=== PATIENT | female | born 1950 | race Caucasian/White ===

== ENCOUNTER 2017-06-28 08:40 | Day surgery (SDC) | payer MEDICARE ==
[2017-06-27 14:05] VITALS: BMI 22.8
[2017-06-28] MEDS ORDERED: Oxymetazoline HCl 0.05% ( 15 ML ) ONE ×2 (09:24→10:51)
[2017-06-28 09:38] LABS: Hemoglobin 13.6 g/dL (12.0-16.0)
[2017-06-28 10:04] LABS: Anion Gap 11 mmol/L (10-20); BUN (Urea Nitrogen) 11 mg/dL (9.8-20.1); Calc. Creatinine Clearance 107 mL/min (70-130); Calcium 9.6 mg/dL (7.8-10.44); Carbon Dioxide 26 mmol/L (23-31); Chloride 107 mmol/L (98-107); Estimated GFR-MDRD Greater than 90; Glucose 96 mg/dL (80-115); Potassium 4.4 mmol/L (3.5-5.1); Sodium 140 mmol/L (136-145)
[2017-06-28] MEDS ORDERED: Ondansetron HCl/PF 4 MG/2 ML Vial ONE (10:50)
[2017-06-28] MEDS ORDERED: Midazolam HCl 2 mg/2 ml Vial ONE (10:50)
[2017-06-28] MEDS ORDERED: Fentanyl 100 MCG/2 ML VIAL ONE (10:50)
[2017-06-28] MEDS ORDERED: Lidocaine 1% w/Epinephrine 1:200K 30 ML VIAL ONE (10:51)
[2017-06-28] MEDS ORDERED: Bacitracin Zinc Ointment 30 gm TUBE ONE (10:51)
--- NOTE | 2017-06-28 11:39 | EKG ---
Test Reason : PREOP Blood Pressure : / mmHG Vent. Rate : 063 BPM Atrial Rate : 063 BPM P-R Int : 170 ms QRS Dur : 094 ms QT Int : 440 ms P-R-T Axes : 002 -32 006 degrees QTc Int : 450 ms Normal sinus rhythm Left axis deviation Abnormal ECG When compared with ECG of 03-JUL-2007 12:05, QRS axis Shifted left Confirmed by DR. Yesenia PIERRE ([id number]) on 06/28/2017 11:39:00 AM Referred By: CRISS Confirmed By:DR. Yesenia PIERRE
[2017-06-28] MEDS ORDERED: PROPOFOL 200 MG/20 ML VIAL ONE (13:12)
[2017-06-28] MEDS ORDERED: Lidocaine 1% PF 5 ML VIAL ONE (13:12)
--- NOTE | 2017-06-28 23:08 | OP ---
PREOPERATIVE DIAGNOSES: 1. Right allergic fungal sinusitis. 2. Right nasal polyposis. 3. Right chronic rhinosinusitis. POSTOPERATIVE DIAGNOSES: 1. Right allergic fungal sinusitis. 2. Right nasal polyposis. 3. Right chronic rhinosinusitis. PROCEDURES PERFORMED: 1. Right endoscopic sinus surgery, total ethmoidectomies. 2. Right endoscopic sinus surgery, maxillary antrostomy with removal of tissue. 3. Right endoscopic sinus surgery, sphenoidotomy. 4. Right endoscopic sinus surgery, frontal sinusotomy. SURGEON: Dontae Mcmillan M.D. ESTIMATED BLOOD LOSS: 20 mL COMPLICATIONS: None. ANESTHESIA: GETA. PROCEDURE IN DETAIL: The patient taken to the operating room and placed supine on the table. Genera l endotracheal anesthesia was obtained by the Anesthesia staff. Tube was secured in the left lower l ip. The patient was placed in the beach chair position. Afrin pledgets were then placed in the nasa l cavities as the patient was prepped and draped for standard nasal procedure. Following this, the A frin pledgets were removed. A 0-degree scope was advanced into the right nasal cavity. Left nasal c avity was examined and previous changes of the endoscopic sinus surgery that showed no significant or concerning mucosal disease. On the right side, copious amounts of nasal polyps and allergic fungal was encountered in the middle meatus area. The middle turbinate was gently medialized with a Cordova e levator. Following this, the microdebrider was used to remove the remnant of the uncinate process as well as identify wide maxillary sinus on this right side. Following this, remnant cell of the ethmo idal bulla and grand lamella were identified and were removed using the microdebrider. Working from posterior to anterior, the ethmoidal cells were opened in a mucosal-sparing technique. Following thi s, staying medial to the middle turbinate, the sphenoid sinus ostia, which become stenotic, was ident ified and was repunctured using the 0-degree microdebrider. The sphenoid sinus on this right side wa s widened medially and inferiorly with the microdebrider. Following this, a 45-degree scope and the upbiting microdebrider were used to further resect and open the frontal sinus ostia cells. On this, the nasal cavity was irrigated, copious amounts of polyps were encountered throughout the ethmoidal s inuses, maxillary sinus, sphenoid sinus and frontal sinuses in right side. On this, Afrin pledgets w ere placed in the nasal cavity. The patient tolerated the procedure well.
== END 2017-06-28 13:45 | disposition home or self-care (01) ==
LOC: SDC 08:40
PROVIDERS: ATTEND Otolaryngology Plastic Surgery within the Head & Neck
PROC: 099R8ZZ Drainage of Left Maxillary Sinus, Via Natural or Artificial Opening Endoscopic (ICD-10-PCS; principal; 2017-06-28)
PROC: 099Q8ZZ Drainage of Right Maxillary Sinus, Via Natural or Artificial Opening Endoscopic (ICD-10-PCS; 2017-06-28)
PROC: 09TV8ZZ Resection of Left Ethmoid Sinus, Via Natural or Artificial Opening Endoscopic (ICD-10-PCS; 2017-06-28)
PROC: 09TU8ZZ Resection of Right Ethmoid Sinus, Via Natural or Artificial Opening Endoscopic (ICD-10-PCS; 2017-06-28)
PROC: 09BT8ZZ Excision of Left Frontal Sinus, Via Natural or Artificial Opening Endoscopic (ICD-10-PCS; 2017-06-28)
PROC: 09BS8ZZ Excision of Right Frontal Sinus, Via Natural or Artificial Opening Endoscopic (ICD-10-PCS; 2017-06-28)
PROC: 09CX8ZZ Extirpation of Matter from Left Sphenoid Sinus, Via Natural or Artificial Opening Endoscopic (ICD-10-PCS; 2017-06-28)
PROC: 09CW8ZZ Extirpation of Matter from Right Sphenoid Sinus, Via Natural or Artificial Opening Endoscopic (ICD-10-PCS; 2017-06-28)
DX: J32.9 Chronic sinusitis, unspecified (principal); J33.9 Nasal polyp, unspecified; R25.1 Tremor, unspecified; L23.0 Allergic contact dermatitis due to metals; Z79.899 Other long term (current) drug therapy; Z87.891 Personal history of nicotine dependence
CPT/HCPCS: 36415; 80048; 85014; 85018; 87070; 87077; 87102; 87186; 87205; 87206; 93005; 93010; J2001; J2250; J2405; J2704; J3010

== ENCOUNTER 2017-12-20 06:46 | Day surgery (SDC) | payer MEDICARE ==
[2017-12-18 15:30] VITALS: BMI 23.0
[2017-12-20] MEDS ORDERED: Dexamethasone 4 mg/ml Vial ONE (06:59)
[2017-12-20] MEDS ORDERED: Dexamethasone 4 mg/ml Vial SLOW IVP SCH (07:00)
[2017-12-20] MEDS ORDERED: Ampicillin/Sulbactam 3 GM in Sodium Chloride 0.9% 100 ML IVPB SCH (07:00)
[2017-12-20] MEDS ORDERED: Midazolam HCl 2 mg/2 ml Vial ONE (07:21)
[2017-12-20] MEDS ORDERED: Fentanyl 250 MCG/5 ML VIAL ONE (07:21)
[2017-12-20] MEDS ORDERED: Chlorhexidine Gluconate 15 ML UDCUP SSP ONE ×2 (08:26→08:27)
[2017-12-20] MEDS ORDERED: Bupivacaine/Epinephrine 0.25% 30 ML VIAL ONE (08:26)
[2017-12-20] MEDS ORDERED: Lidocaine 1% w/Epinephrine 1:100K 30 ML VIAL ONE (08:26)
[2017-12-20] MEDS ORDERED: Lidocaine 4% Topical Sol 50 ML BOT ONE (08:48)
[2017-12-20] MEDS ORDERED: Ketorolac Tromethamine 30 MG/ML VIAL ONE (11:24)
[2017-12-20] MEDS ORDERED: HYDROcodone/Acetaminophen 5/325 mg Tablet ONE (11:28)
[2017-12-20] MEDS ORDERED: Glycopyrrolate 0.2 MG/ML 5 ML SYRINGE ONE (13:29)
[2017-12-20] MEDS ORDERED: PROPOFOL 200 MG/20 ML VIAL ONE (13:29)
[2017-12-20] MEDS ORDERED: PHENYLEPHRINE-NS 100 MCG/ML 10 ML SYRINGE ONE (13:29)
[2017-12-20] MEDS ORDERED: Ondansetron PF 4 MG/2 ML Vial ONE (13:29)
[2017-12-20] MEDS ORDERED: Lidocaine 1% PF 5 ML VIAL ONE (13:29)
[2017-12-20] MEDS ORDERED: ePHEDrine/0.9% NaCl/PF SYRINGE 50 mg/10 ml ONE (13:29)
[2017-12-20] MEDS ORDERED: Dexamethasone 20 MG/5 ML VIAL ONE (13:29)
--- NOTE | 2017-12-21 12:28 | OP ---
DATE OF PROCEDURE: 12/20/2017 PREOPERATIVE DIAGNOSES: 1. Failing maxillary hardware. 2. Chronic maxillary sinusitis. 3. Bilateral mandibular torus. POSTOPERATIVE DIAGNOSES: 1. Failing maxillary hardware. 2. Chronic maxillary sinusitis. 3. Bilateral mandibular torus. PROCEDURES PERFORMED: 1. Removal of maxillary hardware. 2. Removal of bilateral mandibular torus. ANESTHESIA: General nasal endotracheal anesthesia. ASSEMBLING MACHINE OPERATOR: Dr. Kerns. INDICATIONS FOR PROCEDURE: This is a 67-year-old female with a chronic history of bilateral maxillar y sinusitis with multiple surgical interventions by her ENT surgeon without resolution. The patient had orthognathic surgery 30 years ago with maxillary hardware bilaterally with screws present in the maxillary sinus cavity which were believed to be seated with bacteria and a source of chronic sinusit is. Patient elects for removal of hardware to eliminate the source for infection. She also complain s of difficulty speaking due to enlargement of the bilateral mandibular torus. PROCEDURE PERFORMED: The patient was met in the preoperative holding area. Risks, benefits, and alt ernatives were discussed in detail. Questions were sought and answered. Informed consent was obtain ed. She was transferred to the operating table where a safety belt was secured. ASA monitors were a ttached and the patient was noted to have stable vital signs. IV induction by Anesthesia with nasoen dotracheal intubation without complication. Endotracheal tube was secured in a standard head wrap fa shion and a timeout was performed. The patient was prepped and draped in a sterile fashion. The kitty pharynx was thoroughly suctioned. A moistened Ray-Yamile throat pack was placed. Peridex mouth rinse a nd tooth brushing was performed, then approximately 15 mL of 0.25% Marcaine with 1:200,000 epinephrin e was administered as bilateral infiltration along the maxillary vestibule as well as bilateral infer ior alveolar nerve and lingual nerve blocks. A Bovie cautery was used for a vestibular horseshoe-sha ped incision across the maxilla. Blunt subperiosteal dissection was performed to expose the maxillar y hardware bilaterally. Two plates and ten screws were identified. Multiple screws were loose withi n the plates bilaterally. These were removed with a screwdriver and hemostat for removal of the plat es. Copious irrigation of the wounds was performed and the incision was closed with a running 4-0 Vi cryl suture bilaterally. Then, a sulcular lingual based incision from first molar to first molar in the mandibular arch was performed with blunt subperiosteal dissection to expose the bilateral mandibu lar torus. A Seldin retractor was used to protect the soft tissues of the floor of the mouth and a 7 03 bone suleiman, rongeur and rasp were used for removal of the bilateral torus and contouring of the del gual cortex. Copious irrigation of the wounds was performed bilaterally and interrupted 4-0 chromic sutures were used interdentally for closure of the bilateral lingual flaps. The oropharynx was irrig ated and thoroughly suctioned. The moistened Ray-Yamile throat pack was removed. This concluded the pr ocedure. The patient was extubated in the room and returned to the PACU in stable condition. FLUIDS: See anesthesia records. BLOOD LOSS: 150 mL. DRAINS: None. SPECIMENS: None. COUNTS: Needle and sponge count verified as correct. COMPLICATIONS: None.
== END 2017-12-20 13:50 | disposition home or self-care (01) ==
LOC: SDC 06:46
PROVIDERS: ATTEND Dentist Oral and Maxillofacial Surgery
PROC: 0NPW04Z Removal of Internal Fixation Device from Facial Bone, Open Approach (ICD-10-PCS; principal; 2017-12-20)
PROC: 0NBV0ZZ Excision of Left Mandible, Open Approach (ICD-10-PCS; 2017-12-20)
PROC: 0NBT0ZZ Excision of Right Mandible, Open Approach (ICD-10-PCS; 2017-12-20)
DX: M27.0 Developmental disorders of jaws (principal); T84.218A Breakdown (mechanical) of internal fixation device of other bones, initial encounter; J32.0 Chronic maxillary sinusitis; J45.909 Unspecified asthma, uncomplicated; G25.81 Restless legs syndrome; M81.0 Age-related osteoporosis without current pathological fracture; Z79.899 Other long term (current) drug therapy; Z88.8 Allergy status to other drugs, medicaments and biological substances
CPT/HCPCS: 96374; J0131; J0295; J1100; J1885; J2001; J2250; J2405; J2704; J3010; J7050

== ENCOUNTER 2018-09-18 09:47 | Emergency (ER) | payer MEDICARE ==
[2018-09-18] MEDS ORDERED: diphenhydrAMINE 12.5 MG/5 ML UDCUP ONE (10:30)
[2018-09-18] MEDS ORDERED: diphenhydrAMINE 50 MG/ML VIAL ONE (10:32)
[2018-09-18 11:12] LABS: Band 18 % (5-11); Hemoglobin 13.9 g/dL (12.0-16.0); Lymphocytes 19 % (21-51); MDiff Complete? YES; Mean Corpuscular HGB CONC 32.7 g/dL (32.0-36.0); Mean Corpuscular Hemoglobin 29.8 pg (27.0-31.0); Mean Corpuscular Volume 91.3 fL (78.0-98.0); Mean Platelet Volume 7.7 fL (7.4-10.4); Monocytes 5 % (0-10); Neutrophil 57 % (42-75); Platelet Count 220 thou/uL (130-400); RBC Distribution Width 11.8 % (11.5-14.5); RBC Morphology Normal; Reactive Lymphocytes 1 % (0-10); Red Blood Cell (RBC) Count 4.66 mill/uL (4.20-5.40); White Blood Cell (WBC) Count 8.8 thou/uL (4.8-10.8)
[2018-09-18 11:15] LABS: ALT (SGPT) 20 U/L (8-55); AST (SGOT) 19 U/L (5-34); Albumin 4.1 g/dL (3.4-4.8); Alkaline Phosphatase 101 U/L (40-150); Anion Gap 14 mmol/L (10-20); BUN (Urea Nitrogen) 9 mg/dL (9.8-20.1); Bilirubin, Total 0.7 mg/dL (0.2-1.2); CK (CPK) 53 U/L (29-168); Calc. Creatinine Clearance 0 mL/min (70-130); Calcium 9.5 mg/dL (7.8-10.44); Carbon Dioxide 24 mmol/L (23-31); Chloride 106 mmol/L (98-107); Estimated GFR-MDRD Greater than 90; Globulin 2.7 g/dL (2.4-3.5); Glucose 100 mg/dL (80-115); Lipase 10 U/L (8-78); Potassium 3.7 mmol/L (3.5-5.1); Protein, Total 6.8 g/dL (6.0-8.3); Sodium 140 mmol/L (136-145)
[2018-09-18 11:31] LABS: Bilirubin Negative (Negative); Blood, Urine Negative (Negative); Clarity Clear (Clear); Glucose, Urine (Dipstick) Normal (Negative); Leukocyte Negative Leu/uL (Negative); Nitrite Negative (Negative); Protein, Urine (Dipstick) Negative (Neg-Trace); Urobilinogen Normal mg/dL (Less than 2)
--- NOTE | 2018-09-18 11:43 | CT ---
CT Abdomen Pelvis W Con History: Abdominal pain. Diarrhea. Comparison: Small right layering pleural effusion. Mild atelectasis lung bases. No pericardial effusi on. Severe circumferential Findings: The containing of the distal esophagus. High-grade intrahepatic and extrahepatic biliary dilatation. Prior cholecystectomy. The common bile d uct measures 13 mm to the level of the ampulla for which there is a high-grade narrowing of the distal 7 mm. Aortic contour is nonaneurysmal. Evidence of recent left hip surgery. No dilated loops of large or small bowel. No free intraperitoneal gas or fluid. Aortoiliac contour is nonaneurysmal. No retroperitoneal periodic adenopathy. Nonobstructive 2 x 2 mm calculus superior pole right kidney. Obstructing 2 x 2 mm calculus inferior p ole left kidney. Mild osseous demineralization. Impression: 1. High-grade circumferential wall thickening of the distal esophagus may reflect esophagitis versus malignancy. Upper endoscopy recommended. 2. Small right layering pleural effusion. 3. Nonobstructive bilateral renal calculi. 4. Severe intrahepatic and extrahepatic biliary dilatation to the level of the pancreatic head with h igh-grade narrowing of the 7 mm common bile duct near the ampulla. Normal caliber pancreatic duct. Recommend correlation with LFTs. ERCP recommended.
[2018-09-18] MEDS ORDERED: ISOVUE-370 76%-LOCM 1 ML ONE (13:34)
== END 2018-09-18 12:18 | disposition home or self-care (01) ==
LOC: ERS 09:47
DX: E86.0 Dehydration (principal); K83.8 Other specified diseases of biliary tract; K22.8 Other specified diseases of esophagus; Z79.899 Other long term (current) drug therapy
CPT/HCPCS: 36415; 74177; 80053; 81003; 82550; 83690; 85025; 96361; 96374; J1200; Q0163; Q9966

== ENCOUNTER 2018-09-26 10:03 | Inpatient (IN) | payer MEDICARE ==
[2018-09-26] MEDS ORDERED: ISOVUE-370 76%-LOCM 1 ML ONE (10:15)
[2018-09-26] MEDS ORDERED: Acetaminophen 500 MG TAB ONE (10:30)
[2018-09-26] MEDS ORDERED: Ondansetron PF 4 MG/2 ML Vial ONE (10:30)
[2018-09-26] MEDS ORDERED: Piperacillin/Tazobactam 4.5 GM VIAL ONE (10:36)
[2018-09-26 10:57] LABS: Mean Corpuscular HGB CONC 33.8 g/dL (32.0-36.0); Mean Corpuscular Hemoglobin 30.4 pg (27.0-31.0); Mean Corpuscular Volume 89.9 fL (78.0-98.0); Mean Platelet Volume 7.7 fL (7.4-10.4); Platelet Count 287 thou/uL (130-400); RBC Distribution Width 12.5 % (11.5-14.5); Red Blood Cell (RBC) Count 4.29 mill/uL (4.20-5.40); White Blood Cell (WBC) Count 30.6 thou/uL (4.8-10.8)
--- NOTE | 2018-09-26 11:11 | CT ---
CT LEFT LOWER EXTREMITY WITH CONTRAST: Date: 09/26/18 HISTORY: Postoperative pain. COMPARISON: CT abdomen/pelvis dated 09/18/18. FINDINGS: There is mild hyperenhancement of the sigmoid colon which can be seen with colitis. Also, low grade s ubmucosal edema. Bones: Enostosis of the left acetabulum. Evidence of recent gluteus medius surgery. No acute fracture or mal alignment. Small acetabular osteophyte formation. The obturator rings are intact. No erosions or frannie ostitis. Soft Tissues: No abnormal soft tissue mass is appreciated. No fluid collection. No abscess. Muscles: Muscle bulk is normal. No definite muscle tear. Neurovascular Structures: Intact. IMPRESSION: 1. Mild hyperenhancement of the sigmoid colon with submucosal edema can be seen with colitis. 2. Expected postoperative findings without complication. POS: [facility]
[2018-09-26 11:19] LABS: ALT (SGPT) 22 U/L (8-55); AST (SGOT) 24 U/L (5-34); Albumin 3.6 g/dL (3.4-4.8); Alkaline Phosphatase 73 U/L (40-150); Anion Gap 16 mmol/L (10-20); BUN (Urea Nitrogen) 5 mg/dL (9.8-20.1); Calc. Creatinine Clearance 0 mL/min (70-130); Calcium 8.5 mg/dL (7.8-10.44); Carbon Dioxide 20 mmol/L (23-31); Chloride 107 mmol/L (98-107); Estimated GFR-MDRD Greater than 90; Globulin 2.4 g/dL (2.4-3.5); Glucose 101 mg/dL (80-115); Lipase 9 U/L (8-78); Potassium 3.6 mmol/L (3.5-5.1); Sodium 139 mmol/L (136-145)
[2018-09-26 11:19] LABS: Bilirubin Negative (Negative); Blood, Urine Negative (Negative); Clarity Clear (Clear); Glucose, Urine (Dipstick) Normal (Negative); Leukocyte Negative Leu/uL (Negative); Nitrite Negative (Negative); Protein, Urine (Dipstick) Negative (Neg-Trace); Urobilinogen Normal mg/dL (Less than 2)
[2018-09-26 11:21] LABS: Band 28 % (5-11); Lymphocytes 7 % (21-51); MDiff Complete? YES; Monocytes 3 % (0-10); Neutrophil 60 % (42-75); Platelet Morphology Comment Appears Adequate; Reactive Lymphocytes 2 % (0-10); Vacuoles SLIGHT
[2018-09-26] MEDS ORDERED: Vancomycin HCl 25 MG/ML Oral PO SCH ×2 (12:45→18:00)
[2018-09-26] MEDS ORDERED: Acetaminophen 325 MG TAB ONE (15:13)
[2018-09-26] MEDS ORDERED: Acetaminophen 650 MG Suppository PR PRN (16:30)
[2018-09-26] MEDS ORDERED: Saccharomyces boulardii 250 MG CAP PO SCH (17:15)
--- NOTE | 2018-09-26 17:33 | HP ---
PRIMARY CARE PROVIDER: Earline Noel MD CHIEF COMPLAINT: Diarrhea. HISTORY OF PRESENT ILLNESS: Ms. Stephenson is a pleasant 68-year-old lady who was seen at [facility] on September 26, 2018. She reports that on July 10, she had left hip surgery. On August 07, a pocket of fluid was found at the site of surgery. She reports on and off left hip pain, but is unable to characterize it further. She reports that over the last 3 weeks she has been having diarrhea. She reports 10 to 15 bowel movements a day. She reports mucousy, nonbloody diarrhea. She was seen in the emergency room at [facility] on September 18, 2018, and had a CT scan of the abdomen and pelvis done at that time. This showed high-grade circumferential wall thickening of the distal esophagus, which may reflect esophagitis versus malignancy, small right layering pleural effusion, and nonobstructive bilateral renal calculi. She also had severe intrahepatic and extrahepatic biliary dilatation to the level of the pancreatic head with high-grade narrowing of the 7 mm common bile duct near the ampulla. She had normal caliber pancreatic duct. She also reports that she had a PET scan, which showed a mass on gallbladder. She reports having fevers, with T-max of 102 degrees Fahrenheit. She reports generalized weakness. She denies nausea or vomiting. She reports abdominal pain, but is unable to characterize it further. REVIEW OF SYSTEMS: All other systems were reviewed and found to be negative. PAST MEDICAL HISTORY: Essential tremor. PAST SURGICAL HISTORY: Hysterectomy, unilateral salpingo-oophorectomy, gallbladder surgery, jaw wiring, tonsillectomy, section, cataract, tendon graft, sinus surgery x3, and left hip surgery. FAMILY HISTORY: Heart disease in her father. SOCIAL HISTORY: The patient denies tobacco use, alcohol use, or recreational drug use. ALLERGIES: NO KNOWN DRUG ALLERGIES. CURRENT MEDICATIONS: 1. Propranolol 20 mg daily. 2. Gabapentin 300 mg daily. 3. Ciprofloxacin 500 mg 2 times a day. 4. Flagyl 500 mg 3 times a day. 5. Imodium 2 mg as needed. 6. Zofran 4 mg as needed. PHYSICAL EXAMINATION: GENERAL: Ms. Stephenson is awake and alert, not in acute distress. VITAL SIGNS: Blood pressure is 103/56, pulse 89, respiratory rate 16, and oxygen saturation 95% on room air. She is afebrile. Earlier, she was hypotensive with a blood pressure of 92/51. When she presented to the emergency room, she had pulse of 101 and respiratory rate of 20. EYES: No scleral icterus. No conjunctival pallor. ENT: Dry mucosal membranes. No oropharyngeal erythema or exudates. NECK: Supple, nontender, trachea is midline. RESPIRATORY: Accessory muscles of breathing are not active. Chest wall movements are symmetric bilaterally. Lungs are clear to auscultation without wheeze, rhonchi, or crepitations. CARDIOVASCULAR: S1 and S2 are heard, regular. Peripheral pulses palpable. ABDOMEN: Bowel sounds are normal. Abdomen is mildly tender diffusely. No guarding or rigidity. NEUROLOGIC: Cranial nerves 2 through 12 are intact. MUSCULOSKELETAL: Power is 5/5 in all 4 extremities. SKIN: No rashes or subcutaneous nodules. LYMPHATIC: No cervical lymphadenopathy. PSYCHIATRIC: The patient is anxious, tearful at times, oriented to person, place, and time. LABORATORY DATA: Ms. Stephenson' labs and investigations were reviewed. I reviewed her electrocardiogram, which shows normal sinus rhythm, no ST changes to suggest an acute coronary syndrome. I also reviewed her lower extremity CT scan done with contrast, which showed colitis in the abdominal view. She has leukocytosis with 30,600 white cells, of which 60% are neutrophils and 20% are bands. Hemoglobin and platelet count are normal. She has normal sodium, normal potassium, decreased creatinine of 0.56, normal LFTs, normal troponin-I, normal lactic acid, and elevated C-reactive protein of 3.5. Urinalysis is positive for ketones, negative for nitrite and leukocyte esterase. ASSESSMENT AND PLAN: Ms. Stephenson is a pleasant 68-year-old lady who was seen at [facility] on September 26, 2018. Her problem list includes: 1. Sepsis: Ms. Stephenson is presenting with sepsis, secondary to Clostridium difficile infection. She will be admitted to the hospital for further management. She has received intravenous fluid resuscitation with improvement in her blood pressure. 2. Clostridium difficile colitis: She will be started on vancomycin orally and metronidazole intravenously. We will also start her on Florastor. 3. Difficulty swallowing: Ms. Stephenson is presenting with difficulty swallowing, most likely secondary to the probable esophagitis seen on CT scan. We will consult GI Service for opinion and help with management. 4. Essential tremor: We will resume propranolol once her blood pressure stabilizes. Many thanks for allowing me to participate in your patient's care. Please feel free to contact me with any questions or concerns. LEVEL OF RISK: High. LEVEL OF COMPLEXITY: High. Job ID: [id number]
[2018-09-26 19:36] VITALS: BMI 20.2
[2018-09-26] MEDS: Sodium Chloride 0.9% 1,000 ML IV SCH (19:47)
[2018-09-26] MEDS: metroNIDAZOLE 500 MG in Premix Bag 1 BAG IVPB SCH (19:47)
[2018-09-26] MEDS: Acetaminophen 325 MG TAB PO PRN (20:32)
[2018-09-26] MEDS: Morphine 2 MG/ML SYRINGE SLOW IVP PRN (21:29)
--- NOTE | 2018-09-27 01:26 | CON ---
DATE OF CONSULTATION: 09/26/2018 REASON FOR CONSULTATION: Severe diarrhea, C difficile toxin positive. HISTORY OF PRESENT ILLNESS: Clemencia Stephenson is a very pleasant 68-year-old female who has been having diarrhea and some abdominal cramping over the last probably for 2 to 3 weeks. She was seen here a couple of weeks ago and had an abdominal CAT scan and was told to have colitis. She was sent home on Flagyl and Cipro. Her symptoms did not improve and continues to have worsening symptoms. She has been go to the bathroom 15 to 20 times a day. Stools are watery and very foul smelling. She has had no blood in the stool. She tells me she had C difficile colitis more than 30 years ago. Apparently, this caused patient to take antibiotic intake. The patient has had some low-grade fever for few days and now has gone up to temperature 102 degrees Fahrenheit. She has mild nausea with no vomiting. The patient apparently has some hip surgery x2 at the [facility]. First surgery was done in June of 2018 and she had repeat surgery in July 2018 because of some cyst over the operative scar area. She was hospitalized overnight at the and was given some antibiotics. The patient developed diarrhea approximately 3 weeks ago. The diarrhea was too mild to begin with, but has been getting worse and worse. When she came to the ER a couple of weeks ago, she had a CAT of abdomen. The CAT scan did show some thickening of the esophageal lumen and the esophageal stricture, also she had dilation of the intrahepatic and extrahepatic bile duct. The patient gives a history of dysphagia over the last 2 years off and on. The dysphagia occurs mostly with solid foods like meat and bread. She has not see a doctor, although she has dysphagia for 2 years. At times, she has had some food stuck in the esophagus. She has no odynophagia. She has no relevant history. MEDICAL ILLNESSES: Essential tremor, childhood asthma, hypertension, peripheral neuropathy, diarrhea over the last 3 weeks. PAST SURGICAL HISTORY: 1. Hip surgery x2, in June and July of 2018. 2. Hysterectomy. 3. Unilateral salpingo-oophorectomy. 4. Cholecystectomy more than 30 years ago. 5. Jaw wiring. 6. Tonsillectomy. 7. . 8. Cataract. FAMILY HISTORY: The father of heart disease. Mother of heart disease. No family history of cancer. No diabetes, CVA, or kidney disease. SOCIAL HISTORY: The patient does not smoke or drink alcohol. ALLERGIES: NO ALLERGIES. REVIEW OF SYSTEMS: Remarkable for basically of abdominal soreness, nausea, and diarrhea. PHYSICAL EXAMINATION: GENERAL: Appears in no distress, but she appears to be moaning and groaning. She states she feels sore over the abdomen. She is also shaking. VITAL SIGNS: Pulse is 90, blood pressure 110/70. Afebrile. HEENT: Conjunctivae clear. NECK: Supple. No adenitis or thyromegaly noted. CARDIOVASCULAR SYSTEM: First and second heart sounds were heard. LUNGS: Clear to auscultation. ABDOMEN: Mildly distended and firm. Abdomen is tender diffusively. There is no rebound or guarding. Bowel sounds are active. EXTREMITIES: Reveal no edema. CENTRAL NERVOUS SYSTEM: Grossly within normal limits. LABORATORY DATA: Admitting labs show WBC of 30,600, hemoglobin 13, hematocrit 38.5, MCV 89.9, platelet count is 287,000, polymorphs 60, bands 28, lymphocytes 7. Chemistry panel shows normal lytes, BUN is 5, creatinine 0.56, glucose 101. Lactic acid 1.4. LFTs are normal. Albumin 3.6. Abdominal CAT scan done couple of weeks which revealed dilation of the biliary tree, most likely from previous cholecystectomy and also possible esophageal stricture. CLINIC IMPRESSION: 1. Severe C difficile colitis, mostly from the antibiotic intake. 2. Esophageal stricture on CAT scan. 3. Dilation of the bile duct on CAT scan. Her liver function tests are normal. The dilation is very well may be because of previous gallbladder surgery more than 30 years ago. Could also have mild hepatic artery stenosis. RECOMMENDATIONS: 1. May have ice chips. 2. IV fluids. 3. Follow up labs. 4. Vancomycin and Flagyl as ordered by Dr. Ramiro Hoyos. 5. Once her clinical condition improves, I believe she will probably need EGD and dilation. Job ID: [id number]
[2018-09-27] MEDS: metroNIDAZOLE 500 MG in Premix Bag 1 BAG IVPB SCH ×3 (01:34→18:06)
[2018-09-27] MEDS: Sodium Chloride 0.9% 1,000 ML IV SCH ×3 (01:34→20:30)
[2018-09-27] MEDS: Morphine 2 MG/ML SYRINGE SLOW IVP PRN (02:12)
[2018-09-27] MEDS: Acetaminophen 325 MG TAB PO PRN (05:25)
[2018-09-27 05:33] LABS: Anion Gap 10 mmol/L (10-20); BUN (Urea Nitrogen) 7 mg/dL (9.8-20.1); Calc. Creatinine Clearance 128 mL/min (70-130); Calcium 7.8 mg/dL (7.8-10.44); Carbon Dioxide 19 mmol/L (23-31); Chloride 112 mmol/L (98-107); Estimated GFR-MDRD Greater than 90; Glucose 87 mg/dL (80-115); Potassium 3.1 mmol/L (3.5-5.1); Sodium 138 mmol/L (136-145)
[2018-09-27 06:48] LABS: #Eosinphils 0.1 thou/uL (0.0-0.7); #Lymphocytes 1.2 thou/uL (1.20-3.40); #Monocytes 1.1 thou/uL (0.11-0.59); #Neutrophils 16.7 thou/uL (1.40-6.50); %Basophils 0.2 % (0.0-1.0); %Eosinophils 0.4 % (0.0-10.0); %Lymphocytes 6.4 % (21.0-51.0); %Monocytes 5.8 % (0.0-10.0); %Neutrophils 87.2 % (42.0-75.0); Hemoglobin 10.9 g/dL (12.0-16.0); Mean Corpuscular HGB CONC 33.5 g/dL (32.0-36.0); Mean Corpuscular Hemoglobin 30.8 pg (27.0-31.0); Mean Platelet Volume 7.1 fL (7.4-10.4); Platelet Count 225 thou/uL (130-400); RBC Distribution Width 12.5 % (11.5-14.5); Red Blood Cell (RBC) Count 3.55 mill/uL (4.20-5.40); White Blood Cell (WBC) Count 19.2 thou/uL (4.8-10.8)
--- NOTE | 2018-09-27 07:53 | ULT ---
Sonogram right upper quadrant HISTORY: Biliary obstruction. Right upper quadrant pain. FINDINGS: Gallbladder is surgically absent. Common duct is 1.3 cm diameter distally. Intrahepatic roma e ducts less distended than on recent CT exam. No focal liver abnormalities. No free fluid. IMPRESSION: Common bile duct is more dilated than on the recent CT from 09/18/2018. Intrahepatic bilia ry distention is less pronounced. Consider central biliary obstruction. Radionucleotide hepatobiliary scan could be used to evaluate for biliary patency. Status post cholecystectomy.
[2018-09-27] MEDS: Vancomycin HCl 25 MG/ML Oral PO SCH ×4 (09:54→20:29)
[2018-09-27] MEDS: Saccharomyces boulardii 250 MG CAP PO SCH (09:55)
[2018-09-27] MEDS: Enoxaparin Sodium 40 MG/0.4 ML SYRINGE SC SCH (09:55)
--- NOTE | 2018-09-27 12:04 | CON ---
DATE OF CONSULTATION: 09/27/2018 HISTORY OF PRESENT ILLNESS: Clemencia Stephenson is a 68-year-old, who was in ER hold all day yesterday. She presented with intractable diarrhea. She received several liters of saline in the emergency room, had stabilization of vital signs. GI has been consulted. PAST MEDICAL HISTORY: Remarkable for a, 1. CAT scanning in August of this year showing thickening of the distal esophagus. 2. History of nephrolithiasis. 3. History of positive PET scan involving her gallbladder according to the admission H and P. 4. Status post hysterectomy. 5. History of unilateral salpingo-oophorectomy. 6. History of jaw wiring in the past. 7. History of tonsillectomy. 8. History of . 9. History of sinus surgery, multiple occasions. 10. History of hip surgery. 11. Status post removal of failing maxillary hardware and removal of bilateral mandibular torus. 12. Apparently, she was felt to have screws penetrating her sinuses, which were leading to chronic infections of the hardware, was removed at the end of 2018. FAMILY HISTORY: Negative for lung disease in early age. SOCIAL HISTORY: She is a nonsmoker and nondrinker. REVIEW OF SYSTEMS: A 10-point review of systems completed, is remarkable only for the diarrhea and she has had some mild abdominal discomfort that improved overnight. PHYSICAL EXAMINATION: GENERAL: She is in no distress. VITAL SIGNS: Afebrile. Blood pressure 115/55, heart rate 86, respiratory rate 15. HEAD AND NECK: Unremarkable. She appears older than her age. LUNGS: Clear. HEART: Regular rhythm. S1 and S2 are normal. No gallop. No murmur. ABDOMEN: Soft, minimally tender, slightly distended. EXTREMITIES: Without clubbing, cyanosis, or edema. NEURO: Nonfocal. LABORATORY DATA: White count 19.2, hemoglobin 10.9, platelets 225. Sodium 138, potassium 3.1, chloride 112, bicarb 19, BUN 7, and creatinine 0.52. Liver enzymes were normal. IMAGING STUDIES: Abdominal ultrasound shows bile duct dilation. She has had a cholecystectomy. Gastroenterology has been consulted. IMPRESSION: 1. Intractable diarrhea with intravascular volume depletion, improving. 2. Hypotension on admission with negative blood cultures, but distal colon inflammation and Clostridium difficile toxin positive and antigen positive. 3. Hyperchloremic acidosis secondary to volume resuscitation. 4. Anemia with a 2 g drop in hemoglobin, likely secondary to volume repletion. 5. Ketonuria, most likely secondary to poor nutritional intake on presentation. 6. Common bile duct dilation. 7. Nonobstructive nephrolithiasis. 8. Status post removal of maxillary hardware for chronic sinus infections, felt to be due to a screw penetrating on maxillary sinus. 9. A distal esophageal thickening of unclear etiology. Gastrointestinal is following. Hemodynamically, she has improved. She needs an EGD at some point in my opinion. She is stable enough to transfer out of the intermediate care unit in my opinion. This is a 50 minute consult with greater than 50% of time spent on unit coordinating care. Job ID: [id number]
--- NOTE | 2018-09-27 17:37 | PDOC.HOSPP ---
- Subjective Subjective: still has watery diarrhea, around 4 times from am till noon no nausea feels wiped out - Objective Vital Signs & Weight: Vital Signs (12 hours) Temp Pulse Ox 09/27/18 15:16 98.5 F 09/27/18 11:42 98.3 F 09/27/18 08:00 99.1 F 99 Weight Admit Weight 170 lb 8 oz Weight 170 lb 8 oz Most Recent Monitor Data Heart Rate from ECG 84 NIBP 128/65 NIBP BP-Mean 86 Respiration from ECG 13 SpO2 99 I&O: 09/26/18 09/27/18 09/28/18 06:59 06:59 06:59 Intake Total 1440 Output Total 900 Balance 540 Result Diagrams: 09/27/18 06:36 09/27/18 04:47 ROS - Review of Systems All systems: All other ROS were reviewed and found negative. - Medication Medications: Active Medications Generic Name Dose Route Start Last Admin Trade Name Freq PRN Reason Stop Dose Admin Acetaminophen 650 mg 09/26/18 16:30 09/27/18 05:25 Tylenol PO 650 mg Q4H PRN Administration Headache/Fever/Mild Pain (1-3) Enoxaparin Sodium 40 mg 09/27/18 09:00 09/27/18 09:55 Lovenox SC 40 mg 0900 KEVIN Administration Metronidazole 500 mg/ Device 100 mls @ 100 mls/hr 09/26/18 18:00 09/27/18 09: 55 IVPB 100 mls 0200,1000,1800 KEVIN Administration Sodium Chloride 1,000 mls @ 100 mls/hr 09/26/18 16:30 09/27/18 14:28 Normal Saline 0.9% IV 1,000 mls .Q10H KEVIN Administration Morphine Sulfate 2 mg 09/26/18 21:06 09/27/18 02:12 Morphine SLOW IVP 2 mg Q4H PRN Administration Severe Pain (7-10) Pneumococcal 13-Valent Conj Vacc 0.5 ml 09/27/18 21:00 09/27/18 02:50 Prevnar IM 09/27/18 21:01 Not Given .ONCE ONE Saccharomyces Boulardii 250 mg 09/27/18 09:00 09/27/18 09:55 Florastor PO 250 mg DAILY KEVIN Administration Vancomycin HCl 250 mg 09/27/18 09:00 09/27/18 14:26 First Vancomycin PO 250 mg QID KEVIN Administration - Exam awake alert, ill appearing Eye: PERRL, anicteric sclera ENT: no oropharyngeal lesions, dry oral mucosa Neck: supple, no JVD Heart: RRR, no gallops Respiratory: no wheezes, no rales Gastrointestinal: soft, non-distended, normal bowel sounds Extremities: no clubbing, no edema Neurological: CN's grossly intact, no focal deficits Musculoskeletal: normal tone, normal strength Psychiatric: normal affect, A&O x 3 Hosp A/P (1) Sepsis Code(s): A41.9 - SEPSIS, UNSPECIFIED ORGANISM Status: Suspected (2) C. difficile colitis Code(s): A04.72 - ENTEROCOLITIS D/T CLOSTRIDIUM DIFFICILE, NOT SPCF RECUR Status: Acute (3) Severe dehydration Code(s): E86.0 - DEHYDRATION Status: Acute (4) Metabolic acidosis Code(s): E87.2 - ACIDOSIS Status: Acute (5) Chronic anemia Code(s): D64.9 - ANEMIA, UNSPECIFIED Status: Chronic - Plan was on multiple rounds of antibiotics for her hip and oral surgery is on vanc, iv hydration june tx to medical floor ruq shows cbd of 1.3cm, prior cholecystectomy home dose propranolol, neurontin to mobilize as tolerated bandemia is slowly coming down with wbc levels
--- NOTE | 2018-09-27 19:38 | PRG ---
DATE OF SERVICE: 09/27/2018 SUBJECTIVE: This is a 68-year-old female with chronic diarrhea diagnosed with C difficile colitis. She is having approximately 15 plus bowel movements every day. She was started on vancomycin and Flagyl. She had bandemia of 20% yesterday, but today her CBC shows normal bandemia. She appears slightly much better. She shows some abdominal soreness diffusely and nausea and vomiting. She has had 3 stools today. Stools are watery. There is no blood in the stool. OBJECTIVE: GENERAL: Appears comfortable. VITAL SIGNS: Afebrile, temperature 98.5 degrees Fahrenheit, pulse is 87, blood pressure is 128/60. CARDIOVASCULAR: First and second heart sounds are normal. LUNGS: Clear to auscultation. ABDOMEN: Soft today compared to yesterday. It is not firm like yesterday. She is largely softer, but she is mildly tender all over. There is no rebound or guarding. LABORATORY DATA: WBC dropping down at 19,200, hemoglobin 10.9, hematocrit 30.7, platelet count 225,000, polymorphs 87, no bandemia, lymphocytes 6, monocytes 5. Chem-7 shows mild hypokalemia, potassium 3.1, CO2 is 19, BUN is 7, calcium 7.8. IMPRESSION: 1. Severe Clostridium difficile colitis, diarrhea. 2. Dysphagia with abnormal CAT scan showing thickening of the distal esophagus and with dilation of bile duct mostly from previous cholecystectomy. RECOMMENDATION: Clear liquid diet today and hopefully, the diet can be advanced to full liquid or soft diet tomorrow. Depending on her bowel frequency, we will make further recommendations. At some point in time from an EGD and I will defer EGD for the next few days unless colitis gets better. Job ID: [id number]
[2018-09-27] MEDS: Gabapentin 300 MG CAP PO SCH (20:28)
[2018-09-27] MEDS: Propranolol 40 MG TAB PO SCH (20:29)
[2018-09-27] MEDS ORDERED: Prevnar 13-Val Conj/PF 0.5 ML SYRINGE IM ONE (21:00)
[2018-09-28] MEDS ORDERED: Melatonin 3 MG TAB PO SCH (01:15)
[2018-09-28] MEDS: metroNIDAZOLE 500 MG in Premix Bag 1 BAG IVPB SCH ×3 (01:22→20:50)
[2018-09-28] MEDS: Morphine 2 MG/ML SYRINGE SLOW IVP PRN (04:25)
[2018-09-28 06:17] LABS: #Eosinphils 0.2 thou/uL (0.0-0.7); #Lymphocytes 1.7 thou/uL (1.20-3.40); #Monocytes 0.7 thou/uL (0.11-0.59); %Basophils 0.2 % (0.0-1.0); %Eosinophils 2.3 % (0.0-10.0); %Lymphocytes 17.4 % (21.0-51.0); %Monocytes 7.1 % (0.0-10.0); %Neutrophils 72.9 % (42.0-75.0); Hemoglobin 10.2 g/dL (12.0-16.0); Mean Corpuscular HGB CONC 32.5 g/dL (32.0-36.0); Mean Corpuscular Volume 92.2 fL (78.0-98.0); Mean Platelet Volume 7.4 fL (7.4-10.4); Platelet Count 235 thou/uL (130-400); RBC Distribution Width 12.6 % (11.5-14.5); White Blood Cell (WBC) Count 9.6 thou/uL (4.8-10.8)
[2018-09-28 06:37] LABS: Anion Gap 10 mmol/L (10-20); BUN (Urea Nitrogen) 5 mg/dL (9.8-20.1); Calc. Creatinine Clearance 131 mL/min (70-130); Carbon Dioxide 21 mmol/L (23-31); Chloride 113 mmol/L (98-107); Estimated GFR-MDRD Greater than 90; Glucose 95 mg/dL (80-115); Sodium 141 mmol/L (136-145)
[2018-09-28 06:45] LABS: Potassium 2.8 mmol/L (3.5-5.1)
[2018-09-28] MEDS: Multivit, Therapeutic 1 TAB PO SCH (09:34)
[2018-09-28] MEDS: Potassium Chloride 20 MEQ TAB PO SCH ×3 (09:34→20:55)
[2018-09-28] MEDS: Saccharomyces boulardii 250 MG CAP PO SCH (09:35)
[2018-09-28] MEDS: Enoxaparin Sodium 40 MG/0.4 ML SYRINGE SC SCH (09:35)
[2018-09-28] MEDS: Vancomycin HCl 25 MG/ML Oral PO SCH ×4 (09:35→21:03)
[2018-09-28] MEDS: Propranolol 40 MG TAB PO SCH ×2 (09:35→21:02)
[2018-09-28] MEDS: Sodium Chloride 0.9% 1,000 ML IV SCH (15:29)
--- NOTE | 2018-09-28 16:58 | PRG ---
DATE OF SERVICE: 09/28/2018 SUBJECTIVE: Clemencia Stephenson has no new complaints. She is still having some loose bowel movements. OBJECTIVE: VITAL SIGNS: She is afebrile, heart rate is in the 60, blood pressure is 123/68. LUNGS: Clear. HEART: Regular rhythm. ABDOMEN: Soft. EXTREMITIES: Without edema. LABORATORY DATA: White count 9.6, hemoglobin 10.2, platelets 235. Potassium is 2.8 today. BUN is 5, creatinine is 0.5, chloride is 113, bicarb is 21. IMPRESSION: 1. Intravascular volume depletion secondary to Clostridium difficile colitis and diarrhea. 2. Distal esophageal thickening by CAT scan. 3. History of nephrolithiasis. 4. Dilated common bile duct. 5. Status post removal of maxillary hardware that was causing a chronic sinus infection. PLAN: Blood cultures have been reviewed. She remains culture negative for blood. She is stable to move out of the intermediate care unit in my opinion. She will continue to be treated for her colitis. Job ID: [id number]
--- NOTE | 2018-09-28 17:06 | PRG ---
DATE OF SERVICE: 09/28/2018 SUBJECTIVE: This is a 68-year-old hospitalized 2 days ago with abdominal pain, diarrhea, and evidence of C. difficile colitis. Abdomen is very firm to begin with and she had bandemia and marked leukocytosis. Over the last 48 hours, she has done much better. Abdomen is being a lot softer. She has complained of abdominal pain, but not as bad. She continues to have diarrhea, but . The patient is on vancomycin IV. She is tolerating clear liquid diet. No nausea and no vomiting. OBJECTIVE: GENERAL: Appears comfortable in no distress. VITAL SIGNS: Afebrile. Temperature 98.3 degrees Fahrenheit, pulse is 67, blood pressure is 123/68. CARDIOVASCULAR SYSTEM: Within normal limits. LUNGS: Within normal limits. ABDOMEN: Soft. Abdomen is nondistended. She is minimally tender diffusively. There is no rebound or guarding. LABORATORY DATA: Shows WBC coming down to 9600, hemoglobin 10.2, hematocrit . The differential count, polymorphs 72, lymphocytes 17, monocytes 7. Chem-7; potassium down to 2.8, BUN is 5. CLINICAL IMPRESSION: 1. Clostridium difficile colitis, making good steady, but slow progress. 2. Dysphagia, possible esophageal stricture. RECOMMENDATIONS: 1. Advance diet to full liquid diet and hopefully to a regular diet tomorrow. 2. I would like to replace the potassium with a potassium supplement by both oral route and with IV fluids. 3. Once the colitis gets better, we will plan for EGD and dilation. Job ID: [id number]
--- NOTE | 2018-09-28 18:54 | PDOC.HOSPP ---
- Subjective Subjective: diarrhea episodes are much better, around 3 from am no nausea, is tolerating liq diet no sob or fever - Objective Vital Signs & Weight: Vital Signs (12 hours) Temp Pulse Ox 09/28/18 15:04 98.3 F 09/28/18 11:35 98.2 F 09/28/18 08:27 98 09/28/18 08:26 98.1 F Weight Admit Weight 170 lb 8 oz Weight 170 lb 8 oz Most Recent Monitor Data Heart Rate from ECG 68 NIBP 127/68 NIBP BP-Mean 87 Respiration from ECG 13 SpO2 98 I&O: 09/27/18 09/28/18 09/29/18 06:59 06:59 06:59 Intake Total 1440 1650 Output Total 900 400 Balance 540 1250 Result Diagrams: 09/28/18 05:41 09/28/18 05:41 ROS - Review of Systems All systems: All other ROS were reviewed and found negative. - Medication Medications: Active Medications Generic Name Dose Route Start Last Admin Trade Name Freq PRN Reason Stop Dose Admin Acetaminophen 650 mg 09/26/18 16:30 09/27/18 05:25 Tylenol PO 650 mg Q4H PRN Administration Headache/Fever/Mild Pain (1-3) Enoxaparin Sodium 40 mg 09/27/18 09:00 09/28/18 09:35 Lovenox SC 40 mg 0900 KEVIN Administration Gabapentin 600 mg 09/27/18 21:00 09/27/18 20:28 Neurontin PO 600 mg HS KEVIN Administration Sodium Chloride 1,000 mls @ 100 mls/hr 09/26/18 16:30 09/28/18 15:29 Normal Saline 0.9% IV 1,000 mls .Q10H KEVIN Administration Morphine Sulfate 2 mg 09/26/18 21:06 09/28/18 04:25 Morphine SLOW IVP 2 mg Q4H PRN Administration Severe Pain (7-10) Multivitamins 1 tab 09/28/18 09:00 09/28/18 09:34 Theragran PO 1 tab DAILY KEVIN Administration Potassium Chloride 40 meq 09/28/18 08:00 09/28/18 15:29 K-Dur PO 09/29/18 14:01 40 meq Q6H KEVIN Administration Propranolol HCl 40 mg 09/27/18 21:00 09/28/18 09:35 Inderal PO 40 mg BID KEVIN Administration Saccharomyces Boulardii 250 mg 09/27/18 09:00 09/28/18 09:35 Florastor PO 250 mg DAILY KEVIN Administration Sodium Chloride 10 ml 09/28/18 09:00 09/28/18 09:35 Flush - Normal Saline IVF 10 ml Q12HR KEVIN Administration Vancomycin HCl 250 mg 09/28/18 17:00 09/28/18 17:06 First Vancomycin PO 250 mg QID KEVIN Administration - Exam awake alert, ill appearing Eye: PERRL, anicteric sclera ENT: no oropharyngeal lesions, dry oral mucosa Neck: supple, no JVD Heart: RRR, no murmur Respiratory: no wheezes, no rales Gastrointestinal: soft, non-tender, non-distended, normal bowel sounds Extremities: no cyanosis, no edema Neurological: CN's grossly intact, no focal deficits Psychiatric: normal affect, A&O x 3 Hosp A/P (1) C. difficile colitis Code(s): A04.72 - ENTEROCOLITIS D/T CLOSTRIDIUM DIFFICILE, NOT SPCF RECUR Status: Acute (2) Severe dehydration Code(s): E86.0 - DEHYDRATION Status: Acute (3) Metabolic acidosis Code(s): E87.2 - ACIDOSIS Status: Acute (4) Chronic anemia Code(s): D64.9 - ANEMIA, UNSPECIFIED Status: Chronic - Plan dehydration is resolving on vanc po and iv flagyl stool freq is coming done kdur q6h x 5 doses gentle iv fluids on oral liq diet d/w tx to med floor to ambulate as tolerated labs in am
[2018-09-28] MEDS ORDERED: Cefdinir 300 MG CAP PO SCH (21:00)
[2018-09-28] MEDS: Gabapentin 300 MG CAP PO SCH (21:02)
[2018-09-29] MEDS ORDERED: Temazepam 15 MG CAP PO PRN (00:32)
[2018-09-29] MEDS: metroNIDAZOLE 500 MG in Premix Bag 1 BAG IVPB SCH ×3 (02:33→17:12)
[2018-09-29] MEDS: Potassium Chloride 20 MEQ TAB PO SCH ×3 (02:33→13:09)
[2018-09-29] MEDS: Sodium Chloride 0.9% 1,000 ML IV SCH ×2 (03:53→07:00)
[2018-09-29 05:43] LABS: #Eosinphils 0.1 thou/uL (0.0-0.7); #Lymphocytes 1.6 thou/uL (1.20-3.40); #Monocytes 0.7 thou/uL (0.11-0.59); #Neutrophils 4.5 thou/uL (1.40-6.50); %Basophils 0.6 % (0.0-1.0); %Eosinophils 2.1 % (0.0-10.0); %Lymphocytes 23.2 % (21.0-51.0); %Neutrophils 64.1 % (42.0-75.0); Mean Corpuscular HGB CONC 33.3 g/dL (32.0-36.0); Mean Corpuscular Hemoglobin 30.8 pg (27.0-31.0); Mean Corpuscular Volume 92.6 fL (78.0-98.0); Mean Platelet Volume 7.5 fL (7.4-10.4); Platelet Count 228 thou/uL (130-400); RBC Distribution Width 12.6 % (11.5-14.5); Red Blood Cell (RBC) Count 3.58 mill/uL (4.20-5.40); White Blood Cell (WBC) Count 7.1 thou/uL (4.8-10.8)
[2018-09-29] MEDS: Acetaminophen 325 MG TAB PO PRN ×2 (05:58→20:20)
[2018-09-29 06:18] LABS: Anion Gap 10 mmol/L (10-20); BUN (Urea Nitrogen) Less than 4 mg/dL (9.8-20.1); Calc. Creatinine Clearance 148 mL/min (70-130); Calcium 8.1 mg/dL (7.8-10.44); Carbon Dioxide 20 mmol/L (23-31); Chloride 113 mmol/L (98-107); Estimated GFR-MDRD Greater than 90; Glucose 85 mg/dL (80-115); Potassium 3.9 mmol/L (3.5-5.1); Sodium 139 mmol/L (136-145)
[2018-09-29] MEDS: Saccharomyces boulardii 250 MG CAP PO SCH (09:17)
[2018-09-29] MEDS: Enoxaparin Sodium 40 MG/0.4 ML SYRINGE SC SCH (09:17)
[2018-09-29] MEDS: Multivit, Therapeutic 1 TAB PO SCH (09:17)
[2018-09-29] MEDS: Vancomycin HCl 25 MG/ML Oral PO SCH ×4 (09:18→20:22)
[2018-09-29] MEDS: Propranolol 40 MG TAB PO SCH ×2 (09:18→20:21)
--- NOTE | 2018-09-29 12:49 | PDOC.HOSPP ---
- Subjective Subjective: diarrhea freq is down to 1 this am, yesterday had 6 per patient this am stool was more semisolid, has lots of flatus no fever, is amb in room - Objective Vital Signs & Weight: Vital Signs (12 hours) Temp Pulse Resp BP Pulse Ox 09/29/18 11:14 97.6 F 69 17 143/77 H 96 09/29/18 07:04 98.6 F 79 17 123/64 96 09/29/18 04:00 98.5 F 76 18 137/71 93 L Weight Admit Weight 170 lb 8 oz Weight 170 lb 8 oz Most Recent Monitor Data Heart Rate from ECG 68 NIBP 127/68 NIBP BP-Mean 87 Respiration from ECG 13 SpO2 98 I&O: 09/28/18 09/29/18 09/30/18 06:59 06:59 06:59 Intake Total 1650 2191 240 Output Total 400 1200 750 Balance 1250 991 -510 Result Diagrams: 09/29/18 05:30 09/29/18 05:30 ROS - Review of Systems All systems: All other ROS were reviewed and found negative. - Medication Medications: Active Medications Generic Name Dose Route Start Last Admin Trade Name Freq PRN Reason Stop Dose Admin Acetaminophen 650 mg 09/26/18 16:30 09/29/18 05:58 Tylenol PO 650 mg Q4H PRN Administration Headache/Fever/Mild Pain (1-3) Enoxaparin Sodium 40 mg 09/27/18 09:00 09/29/18 09:17 Lovenox SC 40 mg 0900 KEVIN Administration Gabapentin 600 mg 09/27/18 21:00 09/28/18 21:02 Neurontin PO 600 mg HS KEVIN Administration Sodium Chloride 1,000 mls @ 100 mls/hr 09/26/18 16:30 09/29/18 07:00 Normal Saline 0.9% IV 1,000 mls .Q10H KEVIN Administration Metronidazole 500 mg/ Device 100 mls @ 100 mls/hr 09/28/18 18:00 09/29/18 09: 19 IVPB 09/29/18 23:59 100 mls 0200,1000,1800 KEVIN Administration Morphine Sulfate 2 mg 09/26/18 21:06 09/28/18 04:25 Morphine SLOW IVP 2 mg Q4H PRN Administration Severe Pain (7-10) Multivitamins 1 tab 09/28/18 09:00 09/29/18 09:17 Theragran PO 1 tab DAILY KEVIN Administration Potassium Chloride 40 meq 09/28/18 08:00 09/29/18 09:27 K-Dur PO 09/29/18 14:01 40 meq Q6H KEVIN Administration Propranolol HCl 40 mg 09/27/18 21:00 09/29/18 09:18 Inderal PO 40 mg BID KEVIN Administration Saccharomyces Boulardii 250 mg 09/27/18 09:00 09/29/18 09:17 Florastor PO 250 mg DAILY KEVIN Administration Sodium Chloride 10 ml 09/28/18 09:00 09/29/18 09:19 Flush - Normal Saline IVF 10 ml Q12HR KEVIN Administration Temazepam 15 mg 09/29/18 00:32 09/29/18 00:45 Restoril PO 09/29/18 23:00 15 mg ONE PRN Administration Insomnia Vancomycin HCl 250 mg 09/28/18 17:00 09/29/18 09:18 First Vancomycin PO 250 mg QID KEVIN Administration - Exam NAD, awake alert Eye: PERRL, anicteric sclera ENT: normocephalic atraumatic, moist mucosa Neck: supple, no JVD Heart: RRR, no murmur Respiratory: no wheezes, no rales Gastrointestinal: soft, non-tender, non-distended, normal bowel sounds Extremities: no clubbing, no edema Neurological: CN's grossly intact, no focal deficits Psychiatric: normal affect, A&O x 3 Hosp A/P (1) C. difficile colitis Code(s): A04.72 - ENTEROCOLITIS D/T CLOSTRIDIUM DIFFICILE, NOT SPCF RECUR Status: Acute (2) Severe dehydration Code(s): E86.0 - DEHYDRATION Status: Resolved (3) Metabolic acidosis Code(s): E87.2 - ACIDOSIS Status: Acute (4) Chronic anemia Code(s): D64.9 - ANEMIA, UNSPECIFIED Status: Chronic - Plan electrolytes and bicarb are slowly getting corrected c.diff is slowly getting better likely dc plan in am if she does well continue flagyl, vanc egd as outpt when she recovers well from c.diff if she tolerates solid diet here. encourage po intake
--- NOTE | 2018-09-29 15:56 | PRG ---
DATE OF SERVICE: 09/29/2018 SUBJECTIVE: The patient states that she did well overnight with no acute events or problems. She does continue to have approximately 6-7 semi-solid bowel movements per day, but they are more formed in consistency when compared to when she was admitted to the hospital. She currently denies any nausea, vomiting, fevers, chills, abdominal pain, constipation, or odynophagia. She has been able to tolerate a liquid diet without any difficulty. OBJECTIVE: VITAL SIGNS: Temperature 97.6, pulse 69, blood pressure 143/77, respiratory rate 17 saturating 96% on room air. GENERAL: The patient is lying in bed, in no acute distress. Alert and oriented x4 CARDIOVASCULAR: Regular rate and rhythm. RESPIRATORY: Clear to auscultation bilaterally. ABDOMEN: Normoactive bowel sounds. Soft, nontender, nondistended. EXTREMITIES: No cyanosis, clubbing, or edema. LABORATORY DATA: CBC with a white blood cell count of 7.1, hemoglobin 11, hematocrit 33, platelets 228. Chemistry with a sodium of 139, potassium 3.9, chloride 113, CO2 20, BUN less than 4, creatinine 0.45, glucose 85. IMAGING DATA: No current GI imaging is available for review. ASSESSMENT AND PLAN: The patient is a 68-year-old female with past medical history of essential tremor, presenting with diarrhea and abnormal GI imaging and with labs showing Clostridium difficile colitis. 1. Clostridium difficile colitis. The patient was initially admitted to the hospital with marked leukocytosis and bandemia along with hypokalemia consistent with increased frequency of diarrhea in light of active infection. Stool studies were positive for Clostridium difficile colitis and she was ultimately placed on oral vancomycin 250 mg 4 times daily. She has responded well to treatment thus far, albeit very slowly with no abdominal pain either subjectively or on physical exam today. She does have continued frequent bowel movements, but they are generating more form when compared to previous. At this point, it sounds like she is responding well to treatment and would continue on the current antibiotic therapy. Recommendations: a. Would advance the patient to a regular diet today given her response to therapy thus far. b. We will continue oral vancomycin 250 mg 4 times daily for a total duration of therapy being 14 days for Clostridium difficile colitis. c. We will continue to monitor electrolytes and replace as needed. d. We will continue to hold on endoscopic management for now. 2. Dysphagia. The patient presented to the hospital with intermittent complaints of dysphagia that has been progressively getting worse over the last two years and mostly occurring with ingestion of solid foods. She currently denies any dysphagia or odynophagia, but there is some concern that there may be an esophageal stricture present in light of her current clinical status. She is currently responding to treatment for Clostridium difficile colitis, but I would hold on endoscopic evaluation for now given her severe infection on this admission. Recommendations: a. We would continue to hold the esophagogastroduodenoscopy for now for further stabilization of her Clostridium difficile colitis. b. We will continue to follow. Please call with any questions. Job ID: [id number]
[2018-09-29] MEDS: Temazepam 15 MG CAP PO PRN (20:20)
[2018-09-29] MEDS: Gabapentin 300 MG CAP PO SCH (20:20)
[2018-09-30] MEDS: Acetaminophen 325 MG TAB PO PRN (06:08)
[2018-09-30] MEDS: Multivit, Therapeutic 1 TAB PO SCH (08:41)
[2018-09-30] MEDS: Saccharomyces boulardii 250 MG CAP PO SCH (08:41)
[2018-09-30] MEDS: metroNIDAZOLE 500 MG TAB PO SCH ×3 (08:41→20:08)
[2018-09-30] MEDS: Propranolol 40 MG TAB PO SCH ×2 (08:42→20:08)
[2018-09-30] MEDS: Enoxaparin Sodium 40 MG/0.4 ML SYRINGE SC SCH (08:42)
[2018-09-30] MEDS: Vancomycin HCl 25 MG/ML Oral PO SCH ×4 (08:43→21:54)
--- NOTE | 2018-09-30 11:35 | PDOC.HOSPP ---
- Subjective Subjective: stools are slowly getting semisolid, but staff have noticed loose stools as well around 5 stools yesterday, 1 this am no abd pain or nausea is tolerating oral solid diet this morning - Objective Vital Signs & Weight: Vital Signs (12 hours) Temp Pulse Resp BP Pulse Ox 09/30/18 07:11 98.2 F 74 17 119/62 94 L Weight Admit Weight 170 lb 8 oz Weight 170 lb 8 oz Most Recent Monitor Data Heart Rate from ECG 68 NIBP 127/68 NIBP BP-Mean 87 Respiration from ECG 13 SpO2 98 I&O: 09/29/18 09/30/18 10/01/18 06:59 06:59 06:59 Intake Total 2191 2950 240 Output Total 1200 3700 Balance 991 -750 240 Result Diagrams: 09/29/18 05:30 09/29/18 05:30 ROS - Review of Systems All systems: All other ROS were reviewed and found negative. - Medication Medications: Active Medications Generic Name Dose Route Start Last Admin Trade Name Freq PRN Reason Stop Dose Admin Acetaminophen 650 mg 09/26/18 16:30 09/30/18 06:08 Tylenol PO 650 mg Q4H PRN Administration Headache/Fever/Mild Pain (1-3) Enoxaparin Sodium 40 mg 09/27/18 09:00 09/30/18 08:42 Lovenox SC 40 mg 0900 KEVIN Administration Gabapentin 600 mg 09/27/18 21:00 09/29/18 20:20 Neurontin PO 600 mg HS KEVIN Administration Metronidazole 500 mg 09/30/18 09:00 09/30/18 08:41 Flagyl PO 500 mg TID KEVIN Administration Morphine Sulfate 2 mg 09/26/18 21:06 09/28/18 04:25 Morphine SLOW IVP 2 mg Q4H PRN Administration Severe Pain (7-10) Multivitamins 1 tab 09/28/18 09:00 09/30/18 08:41 Theragran PO 1 tab DAILY KEVIN Administration Propranolol HCl 40 mg 09/27/18 21:00 09/30/18 08:42 Inderal PO 40 mg BID KEVIN Administration Saccharomyces Boulardii 250 mg 09/27/18 09:00 09/30/18 08:41 Florastor PO 250 mg DAILY KEVIN Administration Sodium Chloride 10 ml 09/28/18 09:00 09/30/18 08:44 Flush - Normal Saline IVF 10 ml Q12HR KEVIN Administration Temazepam 15 mg 09/29/18 19:24 09/29/18 20:20 Restoril PO 15 mg HSPRN PRN Administration Insomnia Vancomycin HCl 250 mg 09/28/18 17:00 09/30/18 08:43 First Vancomycin PO 250 mg QID KEVIN Administration - Exam NAD, awake alert Eye: PERRL, anicteric sclera ENT: no oropharyngeal lesions, moist mucosa Neck: supple, no JVD Heart: RRR, no murmur Respiratory: no wheezes, no rales Gastrointestinal: soft, non-tender, non-distended, normal bowel sounds Extremities: no cyanosis, no edema Neurological: CN's grossly intact, no focal deficits Musculoskeletal: normal strength, no muscle wasting Psychiatric: normal affect, A&O x 3 Hosp A/P (1) C. difficile colitis Code(s): A04.72 - ENTEROCOLITIS D/T CLOSTRIDIUM DIFFICILE, NOT SPCF RECUR Status: Acute (2) Severe dehydration Code(s): E86.0 - DEHYDRATION Status: Resolved (3) Metabolic acidosis Code(s): E87.2 - ACIDOSIS Status: Acute Plan: resolving (4) Chronic anemia Code(s): D64.9 - ANEMIA, UNSPECIFIED Status: Chronic - Plan hemostable is on flagyl and vanc po likely dc plan in am labs to check electrolytes today is amb in room with a rolling walker (has one at home due to hip pain) is tolerating oral solid diet, will need outpt egd for ?esophageal stricture
[2018-09-30 13:58] LABS: Anion Gap 8 mmol/L (10-20); BUN (Urea Nitrogen) Less than 4 mg/dL (9.8-20.1); Calc. Creatinine Clearance 133 mL/min (70-130); Calcium 8.9 mg/dL (7.8-10.44); Carbon Dioxide 26 mmol/L (23-31); Chloride 108 mmol/L (98-107); Estimated GFR-MDRD Greater than 90; Glucose 128 mg/dL (80-115); Potassium 3.8 mmol/L (3.5-5.1); Sodium 138 mmol/L (136-145)
[2018-09-30] MEDS: Gabapentin 300 MG CAP PO SCH (20:08)
[2018-09-30] MEDS: Temazepam 15 MG CAP PO PRN (20:08)
--- NOTE | 2018-09-30 21:19 | PRG ---
DATE OF SERVICE: 09/30/2018 REASON FOR CONSULTATION: Clostridium difficile colitis. SUBJECTIVE: The patient did well overnight with no acute events or problems. She does continue to have frequent bowel movements, but are slightly more formed when compared to yesterday, having approximately 5 to 6 semi-solid bowel movements over the last 24 hours. She also denies any further episodes of dysphagia and has been able to tolerate a solid diet without difficulty. Currently, she denies any nausea, vomiting, fevers, chills, abdominal pain, constipation, dysphagia or odynophagia. OBJECTIVE: VITAL SIGNS: Temperature 98.2, pulse 74, blood pressure 119/62, respiratory rate 17, and saturating 94% on room air. GENERAL: The patient is lying in bed, in no acute distress. Alert and oriented x4. CARDIOVASCULAR: Regular rate and rhythm. RESPIRATORY: Clear to auscultation bilaterally. ABDOMEN: Normoactive bowel sounds. Soft, nontender, and nondistended. EXTREMITIES: No cyanosis, clubbing or edema. LABORATORY DATA: No current studies are available for review. IMAGING DATA: No current GI imaging is available for review. ASSESSMENT AND PLAN: The patient is a 68-year-old female with past medical history of essential tremor, presenting with diarrhea and abnormal GI imaging with labs consistent with Clostridium difficile colitis. Clostridium difficile colitis: The patient was initially admitted to the hospital with marked leukocytosis, bandemia, and hypokalemia secondary to increased diarrhea with stool studies positive for Clostridium difficile. She was ultimately placed on oral vancomycin 250 mg 4 times daily and has responded well to treatment thus far, having significantly decreased frequency of her bowel movements and now solidification of her stools. Recommendations: 1. We would continue the patient on her current dietary regimen. 2. We would continue oral vancomycin 250 mg 4 times daily for a total duration of 14 days for Clostridium difficile colitis. 3. Continue to monitor electrolytes and replace as needed. 4. No endoscopic evaluation is indicated at this time. Dysphagia: The patient also presented to the hospital with intermittent complaints of dysphagia, that had been progressively getting worse over the last 2 years. However, during the course of this hospitalization, she has not had any further complaints of dysphagia, and given her treatment for Clostridium difficile colitis, she would prefer to have this evaluated as an outpatient after being treated for her colon infection. Recommendations: 1. We would hold EGD for now per the patient's preference with treatment of the Clostridium difficile colitis perform first. We would then evaluate the patient on outpatient basis. We will continue to follow. However, if the patient is clinically stable, can be discharged probably as early as tomorrow. Please call with any questions. Job ID: [id number]
[2018-10-01] MEDS: Saccharomyces boulardii 250 MG CAP PO SCH (08:30)
[2018-10-01] MEDS: Propranolol 40 MG TAB PO SCH ×2 (08:30→21:04)
[2018-10-01] MEDS: Multivit, Therapeutic 1 TAB PO SCH (08:30)
[2018-10-01] MEDS: metroNIDAZOLE 500 MG TAB PO SCH ×3 (08:30→21:04)
[2018-10-01] MEDS: Enoxaparin Sodium 40 MG/0.4 ML SYRINGE SC SCH (08:30)
[2018-10-01] MEDS: Vancomycin HCl 25 MG/ML Oral PO SCH ×4 (08:31→21:05)
--- NOTE | 2018-10-01 10:55 | PQF ---
CLINICAL DOCUMENTATION IMPROVEMENT CLARIFICATION FORM: ICD-10 Updated PLEASE DO AN ADDENDUM TO THE PROGRESS NOTE WITH ANY DOCUMENTATION UPDATES OR ADDITIONS AND CARRY THROUGH TO DC SUMMARY. THANK YOU. DATE: 10/01/2018 ATTN: Dr. Matos Please exercise your independent, professional judgment in responding to the clarification form. Clinical indicators are provided on the bottom of this form for your review Please check appropriate box(s) to clarify if the following diagnosis has been ruled in or ruled out: SEPSIS [ x] Ruled in diagnosis [ ] Continue to treat [x ] Resolved [ ] Ruled out diagnosis [ ] Cannot rule out diagnosis [ ] Other diagnosis [ ] Unable to determine In addition, please specify: Present on Admission (POA): [ x] Yes [ ] No [ ] Unable to determine For continuity of documentation, please document condition throughout progress notes and discharge summary. Thank You. CLINICAL INDICATORS - SIGNS / SYMPTOMS / LABS H&P 09/26: She reports fevers, with T-max of 102 degrees F Leukocytosis with 30,600 white cells, of which 60% are neutrophils and 20% are bands Sepsis, secondary to Clostridium difficile infection PN 09/27: Sepsis. Suspected RISKS: H&P: Reports that on July 10, she had left hip surgery. She reports that over last 3 weeks she has been having diarrhea. Clostridium difficile colitis. TREATMENT: MAR: Order 09/28: Vancomycin 250mg po QID MAR: Order 09/26-09/28: Flagyl 500mg IV MAR: Order 09/29: Flagyl 500mg po TID Thank you, Geovanna (This form is maintained as a part of the permanent medical record) 2014 [employer]. All Rights Reserved Geovanna Rose RN, BSN [email or web address] Office: [phone] [facility]
--- NOTE | 2018-10-01 13:51 | PDOC.HOSPP ---
- Subjective Subjective: still has around 8 semisolid to liq stools last 24hrs no abd pain or nausea is able to eat solid food - Objective Vital Signs & Weight: Vital Signs (12 hours) Temp Pulse Resp BP Pulse Ox 10/01/18 08:00 98.0 F 72 18 107/66 95 Weight Admit Weight 170 lb 8 oz Weight 170 lb 8 oz Most Recent Monitor Data Heart Rate from ECG 68 NIBP 127/68 NIBP BP-Mean 87 Respiration from ECG 13 SpO2 98 I&O: 09/30/18 10/01/18 10/02/18 06:59 06:59 06:59 Intake Total 2950 2060 700 Output Total 3700 300 Balance -750 1760 700 Result Diagrams: 09/29/18 05:30 09/30/18 13:14 ROS - Review of Systems All systems: All other ROS were reviewed and found negative. - Medication Medications: Active Medications Generic Name Dose Route Start Last Admin Trade Name Freq PRN Reason Stop Dose Admin Acetaminophen 650 mg 09/26/18 16:30 09/30/18 06:08 Tylenol PO 650 mg Q4H PRN Administration Headache/Fever/Mild Pain (1-3) Enoxaparin Sodium 40 mg 09/27/18 09:00 10/01/18 08:30 Lovenox SC 40 mg 0900 KEVIN Administration Gabapentin 600 mg 09/27/18 21:00 09/30/18 20:08 Neurontin PO 600 mg HS KEVIN Administration Metronidazole 500 mg 09/30/18 09:00 10/01/18 08:30 Flagyl PO 500 mg TID KEVIN Administration Morphine Sulfate 2 mg 09/26/18 21:06 09/28/18 04:25 Morphine SLOW IVP 2 mg Q4H PRN Administration Severe Pain (7-10) Multivitamins 1 tab 09/28/18 09:00 10/01/18 08:30 Theragran PO 1 tab DAILY KEVIN Administration Propranolol HCl 40 mg 09/27/18 21:00 10/01/18 08:30 Inderal PO 40 mg BID KEVIN Administration Saccharomyces Boulardii 250 mg 09/27/18 09:00 10/01/18 08:30 Florastor PO 250 mg DAILY KEVIN Administration Sodium Chloride 10 ml 09/28/18 09:00 10/01/18 08:30 Flush - Normal Saline IVF 10 ml Q12HR KEVIN Administration Temazepam 15 mg 09/29/18 19:24 09/30/18 20:08 Restoril PO 15 mg HSPRN PRN Administration Insomnia Vancomycin HCl 250 mg 09/28/18 17:00 10/01/18 08:31 First Vancomycin PO 250 mg QID KEVIN Administration - Exam awake alert Eye: PERRL, anicteric sclera ENT: normocephalic atraumatic, no oropharyngeal lesions Neck: supple, no JVD Heart: RRR, no murmur Respiratory: no wheezes, no rales Gastrointestinal: soft, non-tender, non-distended, normal bowel sounds Skin: normal turgor, no rashes Neurological: CN's grossly intact, no focal deficits Psychiatric: normal affect, A&O x 3 Hosp A/P (1) C. difficile colitis Code(s): A04.72 - ENTEROCOLITIS D/T CLOSTRIDIUM DIFFICILE, NOT SPCF RECUR Status: Acute (2) Severe dehydration Code(s): E86.0 - DEHYDRATION Status: Resolved (3) Metabolic acidosis Code(s): E87.2 - ACIDOSIS Status: Acute (4) Chronic anemia Code(s): D64.9 - ANEMIA, UNSPECIFIED Status: Chronic - Plan continue vanc and flagyl, her stool is slowly getting solidified but still had nearly 8 bm's check electrolytes in am dc plan when stool freq comes down hemostable
[2018-10-01] MEDS: Gabapentin 300 MG CAP PO SCH (21:03)
[2018-10-01] MEDS: Acetaminophen 325 MG TAB PO PRN (21:04)
[2018-10-02] MEDS: Acetaminophen 325 MG TAB PO PRN (06:20)
[2018-10-02] MEDS: metroNIDAZOLE 500 MG TAB PO SCH ×3 (08:35→20:09)
[2018-10-02] MEDS: Vancomycin HCl 25 MG/ML Oral PO SCH ×4 (08:35→20:09)
[2018-10-02] MEDS: Propranolol 40 MG TAB PO SCH ×2 (08:35→20:09)
[2018-10-02] MEDS: Saccharomyces boulardii 250 MG CAP PO SCH (08:35)
[2018-10-02] MEDS: Enoxaparin Sodium 40 MG/0.4 ML SYRINGE SC SCH (08:35)
[2018-10-02] MEDS: Multivit, Therapeutic 1 TAB PO SCH (08:35)
--- NOTE | 2018-10-02 15:40 | EKG ---
Test Reason : SEPSIS Blood Pressure : / mmHG Vent. Rate : 085 BPM Atrial Rate : 085 BPM P-R Int : 144 ms QRS Dur : 138 ms QT Int : 450 ms P-R-T Axes : 027 -52 002 degrees QTc Int : 535 ms Normal sinus rhythm Right bundle branch block Left anterior fascicular block Bifascicular block No STEMI Abnormal ECG Confirmed by JACKSON Walker, ANU ([id number]), editor at large JAMILAH MOSQUERA ([id number]) on 10/02/2018 3:40:12 PM Referred By: MD PAZ Confirmed By:ANU PAZ M.D.
--- NOTE | 2018-10-02 20:04 | PDOC.HOSPP ---
- Subjective Subjective: Patient seen and examined for C diff colitis. Had 4 episodes of diarrhea this AM. Feels gen weak. No N/V. No new complaints. No overnight events - Objective Vital Signs & Weight: Vital Signs (12 hours) Temp Pulse Resp BP Pulse Ox 10/02/18 19:57 98.0 F 77 16 103/62 94 L Weight Admit Weight 170 lb 8 oz Weight 170 lb 8 oz Most Recent Monitor Data Heart Rate from ECG 68 NIBP 127/68 NIBP BP-Mean 87 Respiration from ECG 13 SpO2 98 I&O: 10/01/18 10/02/18 10/03/18 06:59 06:59 06:59 Intake Total 2060 1900 2200 Output Total 300 Balance 1760 1900 2200 Result Diagrams: 09/29/18 05:30 09/30/18 13:14 ROS - Review of Systems All systems: All other ROS were reviewed and found negative. Respiratory: denies: cough, dry, shortness of breath, hemoptysis, SOB with excertion, pleuritic pain, sputum, wheezing, other Cardiovascular: denies: chest pain, palpitations, orthopnea, paroxysmal noc. dyspnea, edema, light headedness, other - Medication Medications: Active Medications Generic Name Dose Route Start Last Admin Trade Name Freq PRN Reason Stop Dose Admin Acetaminophen 650 mg 09/26/18 16:30 10/02/18 06:20 Tylenol PO 650 mg Q4H PRN Administration Headache/Fever/Mild Pain (1-3) Enoxaparin Sodium 40 mg 09/27/18 09:00 10/02/18 08:35 Lovenox SC 40 mg 0900 KEVIN Administration Gabapentin 600 mg 09/27/18 21:00 10/01/18 21:03 Neurontin PO 600 mg HS KEVIN Administration Metronidazole 500 mg 09/30/18 09:00 10/02/18 13:31 Flagyl PO 500 mg TID KEVIN Administration Morphine Sulfate 2 mg 09/26/18 21:06 09/28/18 04:25 Morphine SLOW IVP 2 mg Q4H PRN Administration Severe Pain (7-10) Multivitamins 1 tab 09/28/18 09:00 10/02/18 08:35 Theragran PO 1 tab DAILY KEVIN Administration Propranolol HCl 40 mg 09/27/18 21:00 10/02/18 08:35 Inderal PO 40 mg BID KEVIN Administration Saccharomyces Boulardii 250 mg 09/27/18 09:00 10/02/18 08:35 Florastor PO 250 mg DAILY KEVIN Administration Sodium Chloride 10 ml 09/28/18 09:00 10/02/18 08:36 Flush - Normal Saline IVF 10 ml Q12HR KEVIN Administration Temazepam 15 mg 09/29/18 19:24 09/30/18 20:08 Restoril PO 15 mg HSPRN PRN Administration Insomnia Vancomycin HCl 250 mg 09/28/18 17:00 10/02/18 16:54 First Vancomycin PO 250 mg QID KEVIN Administration - Exam NAD Heart: RRR, no rubs Respiratory: CTAB, no ronchi Gastrointestinal: soft, non-tender, normal bowel sounds Extremities: no edema Hosp A/P (1) Sepsis Code(s): A41.9 - SEPSIS, UNSPECIFIED ORGANISM Status: Acute (2) C. difficile colitis Code(s): A04.72 - ENTEROCOLITIS D/T CLOSTRIDIUM DIFFICILE, NOT SPCF RECUR Status: Acute (3) Hypokalemia Code(s): E87.6 - HYPOKALEMIA Status: Acute (4) Physical deconditioning Code(s): R53.81 - OTHER MALAISE (5) Essential tremor Code(s): G25.0 - ESSENTIAL TREMOR - Plan Cont PO Vancomycin Cont Inderal for essential tremors Cont other meds as below Patient does not feel comfortable going home due to diarrhea AM labs
[2018-10-02] MEDS: Gabapentin 300 MG CAP PO SCH (20:09)
[2018-10-02] MEDS: Nystatin Cream 15 GM TUBE TOP SCH (23:17)
[2018-10-02] MEDS: Temazepam 15 MG CAP PO PRN (23:19)
[2018-10-03 06:36] LABS: Hemoglobin 12.1 g/dL (12.0-16.0); Platelet Count 320 thou/uL (130-400)
[2018-10-03 06:40] LABS: ALT (SGPT) 25 U/L (8-55); AST (SGOT) 29 U/L (5-34); Albumin 3.2 g/dL (3.4-4.8); Alkaline Phosphatase 63 U/L (40-150); Anion Gap 11 mmol/L (10-20); BUN (Urea Nitrogen) 6 mg/dL (9.8-20.1); Bilirubin, Total 0.3 mg/dL (0.2-1.2); Calc. Creatinine Clearance 131 mL/min (70-130); Calcium 9.2 mg/dL (7.8-10.44); Carbon Dioxide 24 mmol/L (23-31); Chloride 109 mmol/L (98-107); Estimated GFR-MDRD Greater than 90; Globulin 2.6 g/dL (2.4-3.5); Glucose 94 mg/dL (80-115); Magnesium 1.9 mg/dL (1.6-2.6); Phosphorus 3.9 mg/dL (2.3-4.7); Potassium 3.6 mmol/L (3.5-5.1); Protein, Total 5.8 g/dL (6.0-8.3); Sodium 140 mmol/L (136-145)
[2018-10-03] MEDS: Propranolol 40 MG TAB PO SCH (08:38)
[2018-10-03] MEDS: Nystatin Cream 15 GM TUBE TOP SCH (08:39)
[2018-10-03] MEDS: Multivit, Therapeutic 1 TAB PO SCH (08:39)
[2018-10-03] MEDS: Enoxaparin Sodium 40 MG/0.4 ML SYRINGE SC SCH (08:39)
[2018-10-03] MEDS: Saccharomyces boulardii 250 MG CAP PO SCH (08:39)
[2018-10-03] MEDS: metroNIDAZOLE 500 MG TAB PO SCH ×2 (08:39→14:54)
[2018-10-03] MEDS: Vancomycin HCl 25 MG/ML Oral PO SCH ×3 (08:50→16:04)
--- NOTE | 2018-10-03 13:33 | PRG ---
DATE OF SERVICE: 10/03/2018 SUBJECTIVE: Ms. Clemencia Stephenson is a very pleasant 68-year-old , hospitalized a week ago with acute C difficile diarrhea and colitis. She was started on vancomycin and Flagyl. She is making slow, but steady progress. She also has history of dysphagia and the CAT scan showed thickening of the GE junction. EGD for the time being. She is doing much better now. She is having a formed stool and stool are mucoid. She has 6 stools yesterday. She had 2 stools today. No abdominal pain. No nausea or vomiting. She is actually wants to go home today. She offers no complaints. OBJECTIVE: VITAL SIGNS: Afebrile, temperature 98 degrees Fahrenheit, pulse is 80, blood pressure 115/74. CARDIOVASCULAR SYSTEM: First and second heart sounds normal. LUNGS: Clear to auscultation. ABDOMEN: Soft. No organomegaly. No tenderness. . IMPRESSION: 1. Clostridium difficile colitis, improved. 2. Dysphagia from esophageal stricture. PLAN: The patient can be discharged home on vancomycin and Flagyl. She is to come back to see me in the next week. When she gets over the C difficile colitis, we will plan for EGD and dilation as outpatient. Job ID: [id number]
[2018-10-03 17:01] VITALS: BP 123/78; TEMP 97.9
== END 2018-10-03 16:05 | disposition home or self-care (01) | DRG 872 ==
LOC: ERS 10:03 → ERHOLD 13:12 → IMCU/EMU 18:21 → T4-B 09-28 20:18
PROVIDERS: ADMIT Internal Medicine; ATTEND Internal Medicine
DX: A41.4 Sepsis due to anaerobes (principal); A04.72 Enterocolitis due to Clostridium difficile, not specified as recurrent; E87.2 Acidosis; G25.0 Essential tremor; D64.9 Anemia, unspecified; R82.4 Acetonuria; N20.0 Calculus of kidney; E86.0 Dehydration; R13.10 Dysphagia, unspecified; E87.6 Hypokalemia; K22.2 Esophageal obstruction; Z79.899 Other long term (current) drug therapy
CPT/HCPCS: 36415; 51702; 76705; 80048; 80053; 81003; 83605; 83690; 83735; 84100; 84484; 85014; 85018; 85025; 85049; 86140; 87040; 87081; 87086; 87324; 87449; 93005; 96361; 96365; 96367; 96375; J1650; J2270; J2405; J2543; J3370; Q9966

== ENCOUNTER 2018-11-20 08:45 | Day surgery (SDC) | payer MEDICARE ==
[2018-11-19 12:02] VITALS: BMI 21.2
--- NOTE | 2018-11-20 07:46 | HP ---
HISTORY OF PRESENT ILLNESS: This is a 68-year-old female with history of C difficile colitis and diarrhea. She was hospitalized here in August 2018 and was treated with vancomycin and Flagyl. She had recurrence of diarrhea again and had to be placed on Flagyl. . Her symptoms markedly improved. She comes for colonoscopy and fecal microbial transplant. ALLERGIES: NONE. PAST MEDICAL HISTORY: 1. 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 2. Asthma. 3. Cataracts and osteoarthritis . PHYSICAL EXAMINATION: GENERAL: Appears comfortable. VITAL SIGNS: Pulse is 74 and blood pressure 140/80. HEENT: Conjunctivae are clear. NECK: Supple. CARDIOVASCULAR: First and second heart sounds heard. LUNGS: Clear to auscultation. ABDOMEN: soft, non distended and non tender. EXTREMITIES: no edema noted_ ADMITTING DIAGNOSES: A 68-year-old female who comes inr fecal microbial transplant due to recurrent clostridium difficile diarrhea . She is undergoing colonoscopy for fecal microbial transplant. Job ID: [id number] MTDD
--- NOTE | 2018-11-20 13:51 | OP ---
DATE OF PROCEDURE: 11/20/2018 PREOPERATIVE DIAGNOSES: A 68-year-old female with recurrent Clostridium difficile colitis, has been treated with vancomycin and Flagyl and most recently with Questran 1 packet twice a day. Her diarrhea is markedly improved. She is having 1 or 2 stools per day. She also has irritable bowel syndrome, which makes difficult to evaluate how much diarrhea is from the Clostridium difficile and how much is from IBS. The patient undergoing fecal microbial transplant. POSTOPERATIVE DIAGNOSES: 1. Normal colonic mucosa, no colitis seen. 2. Sigmoid diverticular disease. 3. Hemorrhoids. PROCEDURE PERFORMED: Ileocolonoscopy with fecal microbial transplant. DESCRIPTION OF PROCEDURE: The patient was placed on her left lateral position and was given sedation by Anesthesia Department. A rectal exam was done before the scope was advanced into the rectum. No lesions felt on rectal exam. A Pentax video colonoscope was introduced into the rectum and advanced all the way into the cecum. The prep was good. The mucosa appears normal throughout the colon with normal vascular pattern. There was no colitis seen. The appendicular opening, ileocecal wall, and cecum were well seen. I was able to_ advance the scope into the terminal ileum. The ileal mucosa appeared normal. The fecal microbial transplant instilled into the ileum and scope was withdrawn. Again, this was instilled at the ascending colon, cecum, hepatic flexure, transverse colon, and some in the left colon. Retroflexion of scope in the rectum showed hemorrhoids. DISCHARGE PLANNING: This is a 68-year-old female with C difficile colitis hospitalized in August of 2018. She initially was treated with vancomycin and Flagyl. Her symptoms got better, then she had recurrence of diarrhea. She had C difficile toxin and antigen positive on 10/27/2018. She was placed on Flagyl and also Questran. Her symptoms markedly improved. She came for a fecal microbial transplant. She underwent ileocolonoscopy and the fecal microbial transplant done without any difficulty. DISCHARGE RECOMMENDATIONS: 1. Resume diet as before. 2. Stay on Questran 1 packet twice a day for the next 10 to 14 days and we will taper out once a day. 3. _Probiotics of choice once daily. 4. To come back to clinic in 2 weeks. Job ID: [id number] [facility]
[2018-11-20] MEDS ORDERED: PROPOFOL 200 MG/20 ML VIAL ONE (21:14)
== END 2018-11-20 11:42 | disposition home or self-care (01) ==
LOC: SDC 08:45
PROVIDERS: ATTEND Internal Medicine Gastroenterology
PROC: 3E0H8GC Introduction of Other Therapeutic Substance into Lower GI, Via Natural or Artificial Opening Endoscopic (ICD-10-PCS; principal; 2018-11-20)
DX: A04.71 Enterocolitis due to Clostridium difficile, recurrent (principal); K58.0 Irritable bowel syndrome with diarrhea; K57.30 Diverticulosis of large intestine without perforation or abscess without bleeding; K64.9 Unspecified hemorrhoids; Z88.7 Allergy status to serum and vaccine; Z88.8 Allergy status to other drugs, medicaments and biological substances
CPT/HCPCS: J2704

== ENCOUNTER 2019-11-05 07:54 | Outpatient (CLI) | payer MEDICARE, OTHER ==
[2019-11-06 13:02] LABS: SARS-CoV-2 MS2 Positive; SARS-CoV-2 N Gene Negative; SARS-CoV-2 S Gene Negative; SARS-CoV-2 by NAA Not Detected (NotDetected); SARS-CoV-2 orf1ab Negative
== END 2019-11-05 07:55 | disposition home or self-care (01) ==
LOC: LABBT 07:54
PROVIDERS: ATTEND Ophthalmology Retina Specialist
DX: H35.371 Puckering of macula, right eye (principal); Z20.828 Contact with and (suspected) exposure to other viral communicable diseases
CPT/HCPCS: 87635; U0003

== ENCOUNTER 2019-11-07 05:52 | Day surgery (SDC) | payer MEDICARE ==
[2019-11-05 14:09] VITALS: BMI 22.3
[2019-11-07] MEDS ORDERED: Cyclopentolate 1% Opth Drop 2 ML BOT ONE (06:03)
[2019-11-07] MEDS ORDERED: Phenylephrine 2.5% Ophth Soln 5 ML BOT ONE (06:03)
[2019-11-07] MEDS ORDERED: Fluorouracil 100 MG, Enoxaparin Sodium 25 MG, EPINEPHrine 0.3 MG in Ophthalmic Irrigati... IRR SCH (06:13)
[2019-11-07] MEDS ORDERED: Cyclopentolate 1% Opth Drop 2 ML BOT FS SCH (06:13)
[2019-11-07] MEDS ORDERED: Phenylephrine 2.5% Ophth Soln 5 ML BOT FS SCH (06:13)
[2019-11-07] MEDS ORDERED: Midazolam HCl 2 mg/2 ml Vial ONE (06:29)
[2019-11-07] MEDS ORDERED: Fentanyl 100 MCG/2 ML VIAL ONE (06:29)
[2019-11-07] MEDS ORDERED: Enoxaparin Sodium 30 MG/0.3 ML SYRINGE ONE (09:56)
[2019-11-07] MEDS ORDERED: Lidocaine 4% PF 5 ML AMP ONE (09:56)
[2019-11-07] MEDS ORDERED: Bupivacaine PF 0.75% SDV 10 ML ONE (09:56)
[2019-11-07] MEDS ORDERED: Triamcinolone 40 MG/ML VIAL ONE (09:56)
[2019-11-07] MEDS ORDERED: Indocyanine Green 25 MG/10 ML VIAL ONE (09:56)
[2019-11-07] MEDS ORDERED: CEFAZOLIN 1 GM VIAL ONE (09:56)
[2019-11-07] MEDS ORDERED: Lidocaine 1% PF 5 ML VIAL ONE (09:56)
[2019-11-07] MEDS ORDERED: PROPOFOL 200 MG/20 ML VIAL ONE (09:56)
[2019-11-07] MEDS ORDERED: Maxitrol 0.1% Opth Oint 3.5 GM TUBE ONE (09:56)
--- NOTE | 2019-11-08 14:36 | OP ---
DATE OF PROCEDURE: 11/07/2019 PREOPERATIVE DIAGNOSIS: Epiretinal membrane, right eye. POSTOPERATIVE DIAGNOSIS: Epiretinal membrane, right eye. PROCEDURE: Pars plana vitrectomy, membrane peel, right eye. ANESTHESIA: Local with monitored anesthesia care. PROCEDURE IN DETAIL: The patient identified in the preoperative holding area. Appropriate informed consent for the planned surgical procedure on the right eye had been obtained. The patient was transported to the operative suite. Appropriate cardiopulmonary monitoring was established. Local anesthesia obtained using retrobulbar modified Van Lint lid block using 50:50 mixture of 4% lidocaine, 0.75% bupivacaine. The patient was prepped and draped in usual sterile manner for ophthalmic surgery on the right eye. Lid speculum was placed in the right eye. A 25-gauge trocar was placed in the conjunctiva and sclera superotemporally, inferotemporally, supranasally. Infusion line was placed inferotemporally. Light pipe, vitreous cutter inserted to the eye. Core vitrectomy was performed. Indocyanine green dye was infused on the posterior pole x1, identifying the epiretinal membrane. This was elevated using a membrane scraper and peeled across the macula using end gripping forceps. Laser was placed behind the sclerotomy sites. The periphery was examined with indirect ophthalmoscopy. Trocars were removed and the eye was noted to retain pressure well. Retrobulbar Kenalog and subconjunctival Ancef were placed. Antibiotic ointment placed. Eye was patched and shielded. The patient taken to postop recovery unit in good condition having suffered no immediate perioperative complications. The patient was instructed to keep patch and shield on, avoid lifting or bending. Followup appointment with Dr. Monique. Job ID: [id number]
== END 2019-11-07 08:34 | disposition home or self-care (01) ==
LOC: SDC 05:52
PROVIDERS: ATTEND Ophthalmology Retina Specialist
PROC: 08T43ZZ Resection of Right Vitreous, Percutaneous Approach (ICD-10-PCS; principal; 2019-11-07)
PROC: 08NE3ZZ Release Right Retina, Percutaneous Approach (ICD-10-PCS; 2019-11-07)
DX: H35.371 Puckering of macula, right eye (principal); Z79.899 Other long term (current) drug therapy; Z88.1 Allergy status to other antibiotic agents; Z88.7 Allergy status to serum and vaccine; Z88.8 Allergy status to other drugs, medicaments and biological substances
CPT/HCPCS: J0171; J0690; J1650; J2001; J2250; J2704; J3010; J3301; J3490; J9190

== ENCOUNTER 2020-07-07 15:42 | Outpatient (CLI) | payer MEDICARE | END 2020-07-07 15:43 | disposition home or self-care (01) | LOC: BICULT 15:42 | PROVIDERS: ATTEND Urology | DX: N20.0 Calculus of kidney (principal); R35.0 Frequency of micturition; R35.1 Nocturia; N95.2 Postmenopausal atrophic vaginitis; N28.1 Cyst of kidney, acquired; Z87.891 Personal history of nicotine dependence | CPT/HCPCS: 76770 ==

== ENCOUNTER 2023-04-28 22:19 | Observation (INO) | payer OTHER ==
[2023-04-29] MEDS ORDERED: Morphine 2 MG/ML VIAL SLOW IVP PRN (00:24)
[2023-04-29] MEDS ORDERED: Ondansetron PF 4 MG/2 ML Vial IVP PRN (00:24)
[2023-04-29] MEDS: Sodium Chloride 0.9% 1,000 ML IV SCH (01:15)
[2023-04-29] MEDS: Acetaminophen 500 MG TAB PO SCH (01:16)
[2023-04-29 01:53] VITALS: BMI 24.7
[2023-04-29] MEDS ORDERED: Cyclobenzaprine 10 MG TAB PO PRN (06:31)
[2023-04-29] MEDS ORDERED: Ibuprofen 600 MG TAB PO PRN (06:31)
[2023-04-29] MEDS ORDERED: traMADol HCl 50 MG TAB PO PRN (06:31)
[2023-04-29] MEDS: Polyethylene Glycol 3350 17 GM Packet PO SCH (08:48)
[2023-04-29] MEDS: Gabapentin 100 MG CAP PO SCH (08:48)
[2023-04-29] MEDS: Famotidine/PF 20 mg/2ml Vial SLOW IVP SCH (08:48)
[2023-04-29] MEDS: Senokot S 8.6-50 MG TAB PO SCH (08:49)
[2023-04-29] MEDS ORDERED: Propranolol 40 MG TAB PO SCH (09:00)
[2023-04-29] MEDS ORDERED: Famotidine/PF 20 mg/2ml Vial ONE (09:21)
[2023-04-29] MEDS ORDERED: fentaNYL 50 mcg/mL 1 mL Vial ONE ×3 (09:28→11:18)
[2023-04-29] MEDS ORDERED: PROPOFOL 20 ML ONE (09:28)
[2023-04-29] MEDS ORDERED: Ondansetron PF 4 MG/2 ML Vial ONE (09:29)
[2023-04-29] MEDS ORDERED: Dexamethasone 4 mg/ml Vial ONE (09:29)
[2023-04-29] MEDS ORDERED: Lidocaine 1% PF 5 ML VIAL ONE (09:29)
[2023-04-29] MEDS ORDERED: Ketorolac Tromethamine 30 MG (1 mL) VIAL ONE (09:30)
[2023-04-29 09:31] LABS: #Basophils 0.1 thou/uL (0.0-0.2); #Monocytes 0.7 thou/uL (0.11-0.59); #Neutrophils 6.3 thou/uL (1.40-6.50); %Basophils 0.6 % (0.0-1.0); %Eosinophils 0.3 % (0.0-10.0); %Lymphocytes 22.5 % (21.0-51.0); %Monocytes 7.3 % (0.0-10.0); %Neutrophils 69.1 % (42.0-75.0); Hematocrit 35.7 % (36.0-47.0); Hemoglobin 11.7 g/dL (12.0-16.0); Mean Corpuscular HGB CONC 32.8 g/dL (32.0-36.0); Mean Corpuscular Volume 94.4 fl (78.0-98.0); Mean Platelet Volume 10.5 fL (7.4-10.4); Platelet Count 159 10x3/uL (130-400); RBC Distribution Width 13.4 % (11.5-14.5); Red Blood Cell (RBC) Count 3.78 mill/uL (4.20-5.40)
[2023-04-29] MEDS ORDERED: CEFAZOLIN 2 GM VIAL ONE (09:41)
[2023-04-29] MEDS ORDERED: Sodium Chloride 0.9% 100 ML ONE (09:41)
[2023-04-29 09:45] LABS: Anion Gap 11 mmol/L (10-20); BUN (Urea Nitrogen) 12 mg/dL (9.8-20.1); Calc. Creatinine Clearance 114 mL/min (70-130); Calcium 8.7 mg/dL (7.8-10.44); Carbon Dioxide 22 mmol/L (23-31); Chloride 112 mmol/L (98-107); Estimated GFR 96; Glucose 95 mg/dL (83-110); Sodium 141 mmol/L (136-145)
[2023-04-29 09:48] LABS: Prothrombin Time 13.5 sec (12.0-14.7)
[2023-04-29 09:49] LABS: PTT 28.8 sec (22.9-36.1)
[2023-04-29] MEDS ORDERED: SUCCINYLCHOLINE/SOD CL,ISO/PF 200 MG/10 ML SYRINGE FS ONE (09:55)
[2023-04-29] MEDS ORDERED: Ondansetron HCl/PF 4 MG/2 ML Vial IVP PRN (10:12)
[2023-04-29] MEDS ORDERED: Meperidine HCl/PF 25 MG/ML VIAL SLOW IVP PRN (10:12)
[2023-04-29] MEDS ORDERED: Promethazine HCl 25 MG/ML VIAL IM PRN (10:12)
[2023-04-29] MEDS ORDERED: fentaNYL PF 100 MCG/2 ML SYRINGE ONE (10:56)
[2023-04-29] MEDS: traMADol HCl 50 MG TAB PO SCH (12:35)
[2023-04-29] MEDS: Propranolol 40 MG TAB PO SCH (15:42)
[2023-04-29] MEDS: CEFAZOLIN 2 GM in Sodium Chloride 0.9% 100 ML IVPB SCH ×2 (17:50→18:31)
[2023-04-29] MEDS: Saccharomyces boulardii 250 MG CAP PO SCH (22:18)
[2023-04-30 07:20] LABS: #Monocytes 0.8 thou/uL (0.11-0.59); #Neutrophils 8.7 thou/uL (1.40-6.50); %Basophils 0.3 % (0.0-1.0); %Eosinophils 0.1 % (0.0-10.0); %Lymphocytes 19.1 % (21.0-51.0); %Monocytes 6.5 % (0.0-10.0); %Neutrophils 73.6 % (42.0-75.0); Hemoglobin 11.7 g/dL (12.0-16.0); Mean Corpuscular HGB CONC 33.4 g/dL (32.0-36.0); Mean Corpuscular Hemoglobin 31.4 pg (27.0-31.0); Mean Corpuscular Volume 93.8 fl (78.0-98.0); Mean Platelet Volume 10.6 fL (7.4-10.4); Platelet Count 161 10x3/uL (130-400); RBC Distribution Width 13.8 % (11.5-14.5); Red Blood Cell (RBC) Count 3.73 mill/uL (4.20-5.40); White Blood Cell (WBC) Count 11.8 10x3/uL (4.8-10.8)
[2023-04-30 07:42] VITALS: BP 122/65; TEMP 98.2
[2023-04-30 07:44] LABS: Anion Gap 13 mmol/L (10-20); BUN (Urea Nitrogen) 13 mg/dL (9.8-20.1); Calc. Creatinine Clearance 118 mL/min (70-130); Calcium 8.7 mg/dL (7.8-10.44); Carbon Dioxide 22 mmol/L (23-31); Chloride 109 mmol/L (98-107); Estimated GFR 97; Glucose 101 mg/dL (83-110); Potassium 4.1 mmol/L (3.5-5.1); Sodium 140 mmol/L (136-145)
[2023-04-30 08:08] LABS: PTT 27.9 sec (22.9-36.1)
== END 2023-04-30 11:25 | disposition home or self-care (01) ==
LOC: SURG A 04-29 00:02
PROVIDERS: ADMIT Specialist; ATTEND Specialist
PROC: 0PSJ04Z Reposition Left Radius with Internal Fixation Device, Open Approach (ICD-10-PCS; principal; 2023-04-29)
DX: S52.572A Other intraarticular fracture of lower end of left radius, initial encounter for closed fracture (principal); S52.612A Displaced fracture of left ulna styloid process, initial encounter for closed fracture; G89.11 Acute pain due to trauma; Z88.7 Allergy status to serum and vaccine; Z91.048 Other nonmedicinal substance allergy status; Z90.49 Acquired absence of other specified parts of digestive tract; Z90.710 Acquired absence of both cervix and uterus; W10.9XXA Fall (on) (from) unspecified stairs and steps, initial encounter
CPT/HCPCS: 25608; 73110; 80048 ×2; 85025 ×2; 85610 ×2; 85730 ×2; C1713 ×5; J3010; 36415; J1100; J1885; J2405; J2704; J3490; J7050; S0028

== ENCOUNTER 2025-01-27 09:35 | Outpatient (CLI) | payer OTHER ==
[2025-01-27] MEDS ORDERED: Barium Sulfate 96% 176 GM BOT (xray ONLY) ONE (10:31)
[2025-01-27] MEDS ORDERED: E-Z-HD 98% W/W 340GM BOT (x-ray ONLY) ONE (10:31)
== END 2025-01-27 09:36 | disposition home or self-care (01) ==
LOC: RAD 09:35
PROVIDERS: ATTEND Otolaryngology Plastic Surgery within the Head & Neck
DX: R13.10 Dysphagia, unspecified (principal); R63.30 Feeding difficulties, unspecified
CPT/HCPCS: 74220; 74230